=== PATIENT | male | born 1940 | race African-American/Black ===

== ENCOUNTER 2019-09-04 10:09 | Inpatient (IN) | payer MEDICARE, OTHER ==
[~2019-09-04] VITALS: Ht 175.3 cm; Wt 94.8 kg
[2019-09-04 11:30] VITALS: BP 119/65
--- NOTE | 2019-09-04 11:38 | NUR ---
ARRIVED TO UNIT AT APPROXIMATELY 1115. AAOX3. ACYANOTIC. RESTING IN BED. NO DISTRESS NOTED. CALL LIGHT IN REACH. SIDE RAILS UP X2. CALL LIGHT IN REACH. BED LOW. CANE IN REACH. SIDE RAILS UP X2. INSTRUCTED TO CALL FOR ASSISTANCE. VERBALIZED UNDERSTANDING.
[2019-09-04 12:11] VITALS: BP 119/65
[2019-09-04] MEDS ORDERED: ONDANSETRON HCL INJ 2MG/ML 2ML 2 MG/ML VIAL IV PRN (13:45)
[2019-09-04] MEDS ORDERED: ACETAMINOPHEN 325 MG TAB PO PRN (13:45)
[2019-09-04] MEDS: TRAMADOL HCL 50 MG TAB PO PRN ×2 (14:30→21:05)
[2019-09-04] MEDS ORDERED: DEXTROSE 50% SYRINGE 50 ML IV PRN (15:45)
[2019-09-04 16:21] VITALS: BP 118/69
--- NOTE | 2019-09-04 16:24 | History and Physical ---
CHIEF COMPLAINT: Syncopal episode. HISTORY OF PRESENT ILLNESS: This is a 78-year-old male, who was transferred from [facility] ER in the [facility] to our facility due to the fact that the hospital is full capacity, in which he was in the ER for more than 20 hours. He comes into our facility with complaints of a syncopal episode that occurred yesterday. The patient reports that he has had multiple falls related to syncopal episode in which he blacks out, ongoing for the last several months. He has been to the hospital multiple times, has had a complete workup, it is what he reports and found to be negative and he will be discharged to home. He reports, yesterday he was using his walker. When he was walking from his bathroom, he collapsed and fell to the ground. When he woke up, he found himself on the ground and does not recall exactly what happened. He called 911, he was brought into the [facility] ER downtown. The patient was then transferred to our services here at [facility]. The patient is currently doing well with no complaints. He denies any chest pain or any palpitations. Denies any lightheadedness, dizziness, stroke-like symptoms or any seizure-like activity. The patient was seen and evaluated at bedside on the medical floor. He is currently doing well with no other issues at this time. REVIEW OF SYSTEMS: Pertinent positives syncopal episode, lightheadedness with a collapse. The rest of 14-point review of systems are reviewed with the patient and are negative. ALLERGIES: NO KNOWN DRUG ALLERGIES. HOME MEDICATIONS: He takes aspirin, atorvastatin, glipizide, lisinopril, metoprolol, and tramadol with acetaminophen. PAST MEDICAL HISTORY: Diabetes, hypertension, hyperlipidemia, and history of SVT. PAST SURGICAL HISTORY: He said he had a lumbar back surgery more than a year ago. FAMILY HISTORY: Hypertension and diabetes. SOCIAL HISTORY: No drugs. No alcohol. Does not smoke. Good social support. PHYSICAL EXAMINATION: CURRENT VITAL SIGNS: Temperature is 98.9, pulse 86, respiratory rate is 20, blood pressure 119/65, and pulse ox 99% on room air. GENERAL: Not in acute distress, alert and oriented x3. Cooperative on examination. HEENT: Head normocephalic and atraumatic. Eyes; pupils are equal, round, and reactive to light bilaterally. Extraocular muscles intact. NECK: Supple. Good range of motion throughout. No symptoms in the posterior pharynx. Has poor dentition. PULMONARY: Clear to auscultation bilaterally. No wheezing, rales, or rhonchi. No crackles appreciated. CARDIOVASCULAR : Positive S1 and S2. No murmurs, rubs, or gallops. ABDOMEN: Soft, nondistended, and nontender to palpation. Bowel sounds present. MUSCULOSKELETAL: Strength is 5/5 throughout. No evidence of any muscle deficits on examination. NEUROLOGIC: Cranial nerves 2 through 12 are grossly intact. No evidence of any neurological deficits on exam. SKIN: Intact warm to touch. Good cap refill. PSYCHIATRIC: Normal affect and mood. EXTREMITIES: No edema. Good range of motion throughout. LABORATORY DATA: Stat labs are pending. IMAGING STUDIES: X-ray of the back shows degenerative changes in the lumbar spine. Right knee x-ray shows degenerative changes in the right knee with suprapatellar effusion. These imaging studies were performed and evaluated at [facility] ER in [facility]. IMPRESSION: 1. Syncopal episode. 2. History of SVT. 3. Type 2 diabetes. 4. Hypertension. PLAN: At this time, the patient came from an outside ER. I do not see a CT of the brain, which I will go ahead and order now stat. Lumbar x-ray was negative, right knee x-ray was found to be negative as well. I will go ahead and put the patient on cardiac telemetry. Get a Cardiology consultation. Trend the troponins and may need an EP evaluation as he does have a history of SVT according to the records that I read, that was sent to me from [facility]. I will also go ahead and get a Neurology consultation, MRI of the brain and also carotid ultrasound for further evaluation. A CT brain has been ordered as well. I will go ahead and restart his home medications including his anti-glycemics. I will put him on a sliding scale get A1c. I am going to hold Lovenox for now until the imaging studies are back in his CT brain was negative and his MRI of the brain is negative for any bleeding. I will go ahead and get PT and OT evaluation. We will monitor this patient very closely. Consultants involved Cardiology and Neurology, may need EP. MD KOLBY Rodriguez/KORY /[id number]
[2019-09-04 18:29] LABS: BASOPHILS % 0.4 % (0.0-1.0); EOSINOPHILS # (AUTO) 0.1 (0.0-0.4); EOSINOPHILS % 0.7 % (0.0-6.0); HEMATOCRIT 33.6 % (38.2-49.6); HEMOGLOBIN 11.1 g/dL (14.0-18.0); LYMPHOCYTES # (AUTO) 1.1 (1.0-3.2); LYMPHOCYTES % 9.4 % (18.0-39.1); MEAN CORPUSCULAR HEMOGLOBIN 26.9 pg (28-32); MEAN CORPUSCULAR VOLUME 81.6 fL (81-99); MONOCYTES # (AUTO) 1.3 (0.2-0.8); MONOCYTES % 11.2 % (4.4-11.3); NEUTROPHILS # (AUTO) 8.7 (2.1-6.9); PLATELET COUNT 347 x10e3/uL (140-360); RED BLOOD COUNT 4.12 x10e6/uL (4.3-5.7); RED CELL DISTRIBUTION WIDTH 14.6 % (11.7-14.4)
[2019-09-04 18:46] LABS: ANION GAP 13.3 mmol/L (8-16); BLOOD UREA NITROGEN 16 mg/dL (7-26); BUN/CREATININE RATIO 14 (6-25); CALCIUM 9.2 mg/dL (8.4-10.2); CARBON DIOXIDE 26 mmol/L (22-29); CHLORIDE 102 mmol/L (98-107); CREATININE, SERUM 1.17 mg/dL (0.72-1.25); EST GLOMERULAR FILTRATION RATE > 60 ML/MIN (60-); GLUCOSE 158 mg/dL (74-118); POTASSIUM 4.3 mmol/L (3.5-5.1); SODIUM 137 mmol/L (136-145)
--- NOTE | 2019-09-04 18:57 | Diagnostic Imaging Report ---
CT BRAIN WO HISTORY: Syncope COMPARISON: None. Technique: Noncontrast axial scans were obtained from skull base to the vertex. Coronal and sagittal reconstructions obtained from the axial data. One or more of the following dose reduction techniques were used: Automated exposure control, adjustment of the mA and/or kV according to patient size, and/or utilization of iterative reconstruction technique. DISCUSSION: Scalp/Skull: Unremarkable. Brain sulci: Mildly prominent. Ventricles: Compensatory dilatation. Extra-axial spaces: No masses or fluid collections. Carotid siphon calcifications are present. Parenchyma: Mild bilateral deep white matter hypodensity is likely chronic microvascular ischemic change. Otherwise, no masses, hemorrhage, or large vascular territory acute infarct. Dural sinuses: No abnormal densities. Sellar/Suprasellar region: Intact. Skull base: Intact. Incidental findings: None. IMPRESSION: 1. No acute intracranial abnormalities. 2. Mild supratentorial chronic microvascular ischemic change. Mild generalized cerebral volume loss. Signed by: Dr. Sergey Padron M.D. on 09/04/2019 6:53 PM
[2019-09-04 20:00] VITALS: BP 141/84
[2019-09-04] MEDS ORDERED: MELATONIN 5 MG TABLET PO PRN (21:00)
[2019-09-04 21:19] VITALS: BP 141/84
--- NOTE | 2019-09-04 21:35 | NUR ---
SPOKE TO DR. DAIGLE REGARDING PATIENT HEART RATE 120'S TO 130'S ON TELE AND HOME MEDS. NEW ORDER RECEIVED TO CONTINUE HOME MEDS EXCEPT LISINOPRIL AND TO GIVE HOME MED METOPROLOL NOW.
[2019-09-04] MEDS ORDERED: METOPROLOL SUCC25 MG PO (21:45)
[2019-09-04] MEDS ORDERED: ULTRAM50 MG PO (21:45)
[2019-09-04] MEDS ORDERED: LIPITOR20 MG PO (21:45)
[2019-09-04] MEDS ORDERED: LISINOPRIL10 MG PO (21:45)
[2019-09-04] MEDS ORDERED: GLIPIZIDE ER5 MG PO (21:45)
[2019-09-04] MEDS ORDERED: ASPIRIN81 MG PO (21:45)
[2019-09-04] MEDS: METOPROLOL SUCCINATE 25 MG TAB XL PO SCH (22:15)
[2019-09-05] VITALS (8 sets, daily range): BP systolic 108–152; BP diastolic 69–88
[2019-09-05 07:46] LABS: BASOPHILS # (AUTO) 0.1 (0.0-0.1); BASOPHILS % 0.5 % (0.0-1.0); EOSINOPHILS # (AUTO) 0.1 (0.0-0.4); EOSINOPHILS % 1.1 % (0.0-6.0); HEMATOCRIT 34.7 % (38.2-49.6); HEMOGLOBIN 11.4 g/dL (14.0-18.0); LYMPHOCYTES # (AUTO) 1.5 (1.0-3.2); LYMPHOCYTES % 12.4 % (18.0-39.1); MEAN CORPUSCULAR HEMOGLOBIN 26.5 pg (28-32); MEAN CORPUSCULAR HGB CONC 32.9 g/dL (31-35); MEAN CORPUSCULAR VOLUME 80.5 fL (81-99); MONOCYTES # (AUTO) 1.3 (0.2-0.8); MONOCYTES % 11.4 % (4.4-11.3); NEUTROPHILS # (AUTO) 8.7 (2.1-6.9); NEUTROPHILS % 74.1 % (38.7-80.0); PLATELET COUNT 370 x10e3/uL (140-360); RED BLOOD COUNT 4.31 x10e6/uL (4.3-5.7); RED CELL DISTRIBUTION WIDTH 14.5 % (11.7-14.4)
[2019-09-05 08:05] LABS: ANION GAP 15.1 mmol/L (8-16); BLOOD UREA NITROGEN 14 mg/dL (7-26); BUN/CREATININE RATIO 12 (6-25); CALCIUM 9.2 mg/dL (8.4-10.2); CARBON DIOXIDE 24 mmol/L (22-29); CHLORIDE 102 mmol/L (98-107); CREATININE, SERUM 1.16 mg/dL (0.72-1.25); EST GLOMERULAR FILTRATION RATE > 60 ML/MIN (60-); GLUCOSE 124 mg/dL (74-118); POTASSIUM 4.1 mmol/L (3.5-5.1); SODIUM 137 mmol/L (136-145)
[2019-09-05 09:00] LABS: CHOL/HDL RATIO 4.2 (3.9-4.7)
[2019-09-05] MEDS: GLIPIZIDE 5 MG TAB ER PO SCH (10:08)
[2019-09-05] MEDS: ATORVASTATIN 20 MG TAB PO SCH (10:08)
[2019-09-05] MEDS: ASPIRIN 81 MG CHEW TAB PO SCH (10:08)
[2019-09-05] MEDS: METOPROLOL SUCCINATE 25 MG TAB XL PO SCH (10:09)
--- NOTE | 2019-09-05 11:26 | Consultation ---
DATE OF CONSULTATION: Neurology Consultation HISTORY OF PRESENT ILLNESS: Mr. Marcelino is a 78-year-old gentleman, who comes in for repeated syncope and collapse, multiple episodes in the last 2 years. The patient reports that he walks with a walker and he loses balance, he wakes up on the floor. He does not really remember the process of falling, he thinks he is out for minutes, not hours, but may possibly seconds is not entirely sure. He is unclear as to the etiology of these events. They have been ongoing and repeated. He has had a full neurological cardiac workup in the past and he states that nothing really is found. He has history of lightheadedness at times, but denies dizziness, double vision, stroke-like symptoms or seizures or convulsions. REVIEW OF SYSTEMS: Denies headache, chest pain, neck pain, shortness of breath, or fever. A 14-point review of systems is otherwise negative other than syncopal episode itself. MEDICATIONS: At home, he is already on aspirin and atorvastatin. PAST MEDICAL HISTORY: He has history of hypertension, diabetes, and hyperlipidemia. SOCIAL HISTORY: No tobacco, alcohol, or drugs. PHYSICAL EXAMINATION: VITAL SIGNS: Temperature is 98, blood pressure is 141/84 that drops to 118/92, and his heart rate is 84, but regular. He is saturating 97% on room air. HEENT: Exam otherwise shows extraocular muscles intact. Face symmetric. Tongue is midline. Speech is clear. He is a little bit slow to respond. He might have slightly diminished length mild masked faces, but mild. He denies any evidence of loss of sense or smell. CARDIOVASCULAR: Regular rate and rhythm. PULMONARY: Clear. ABDOMEN: Soft and nontender. NEUROLOGIC: Strength is 4/5 in uppers and lowers. Reflexes are diminished. He is not ataxic, but he is a little slow in his movements. ASSESSMENT AND PLAN: I am seeing him for recurrent falls and syncope. I actually suspect he might have a dopaminergic dysfunction, specifically parkinsonian syndrome or Shy-Drager syndrome. CT-PET scan as an outpatient will be warranted as were an EMG, but from this point, we are not going to initiate any new therapeutic intervention at this time. I am going to recommend home physical therapy, occupational therapy evaluation and follow up with me as an outpatient in 1-3 weeks. I discussed this with Mr. Marcelino at length. He agrees with above plan. MD RHONDA HANCOCK/KORY /[id number]
--- NOTE | 2019-09-05 14:27 | History and Physical ---
REPORT TITLE: Cardiac Consultation BODY AFTER REPORT TITLE: REASON FOR CONSULTATION: Repeated syncope and trauma. HISTORY OF PRESENT ILLNESS: A 78-year-old gentleman, who was transferred from [facility] ER to here. Apparently, the patient presented there after major fall and syncope. This fall preceded definitely by syncope, he passed out and he injured his right knee. His right knee is swollen. The patient had several admission with repeated syncope. Latest was few weeks back. As per patient, he will suddenly lose consciousness and he will collapse to the floor. He denied any having any prodrome or any seizure-like activity. Denied having his heart racing or not racing. In fact, his problem started two years ago, but he had only one episode, but then in the last few months he had 5-6 episodes of sudden syncope and collapse. At one stage, his doctor told him he had fast heart rate, he was placed on metoprolol. Really truly the patient is very poor historian. The patient denied having any angina. His activities are quite limited and he is using a cane to walk because of the fall and injury and swollen right knee. There is no angina, no orthopnea, no paroxysmal nocturnal dyspnea. The patient is known to have hypertension, diabetes mellitus, and hyperlipidemia. REVIEW OF SYSTEMS: GENERAL: No fever, no chills. HEENT: No vision problem. No hearing problem. PULMONARY: No cough. No hemoptysis. CARDIAC: No angina, no orthopnea, no PND, syncope as described above. GI: No hematemesis. No melena. : No hematuria. No dysuria. MUSCULOSKELETAL: Aches and pain. ENDOCRINE: No symptoms to suggest hypoglycemia. HEMATOLOGY: No easy bruising or bleeding. MUSCULOSKELETAL: Injury to the right knee and swelling of the right knee and the patient walks with a cane. NEUROLOGICAL: No seizure activity. No localized weakness. No prior CVA or stroke. HOME MEDICATIONS: 1. Lipitor 20 mg a day. 2. Lisinopril 10 mg a day. 3. Aspirin 81 mg a day. 4. Toprol-XL 25 mg a day. 5. Glipizide 5 mg a day. 6. Tramadol. 7. Tylenol. ALLERGIES: NONE. PAST MEDICAL HISTORY: 1. Diabetes mellitus. 2. Hypertension. 3. Hyperlipidemia. 4. History of fast heart rate. 5. Lumbar back surgery. 6. Cholecystectomy. 7. Recent trauma and swelling of the right knee after his fall. FAMILY HISTORY: Strongly positive for hypertension and diabetes mellitus. SOCIAL HISTORY: He is . He is nonsmoker and no alcohol. PHYSICAL EXAMINATION: VITAL SIGNS: Height of 5 feet 9 inches, weight of 209 pounds, blood pressure 120/80, heart rate of 80, respiratory rate of 18. HEENT: Pupils are equal and reactive. NECK: No elevation of jugular venous pulsation. CHEST: Clear to auscultation and percussion. HEART: PMI 5th left intercostal space. Normal first and second heart sounds. ABDOMEN: Soft. EXTREMITIES: No cyanosis, no clubbing, no edema. Swelling of the right knee is noted. GENERAL: Awake, alert, and oriented, able to move all extremities. No focal deficits. LABORATORY DATA: Sodium of 137, potassium of 4.1, BUN of 14, creatinine of 1.1. White blood cell count of 11.7, hemoglobin of 11.4, hematocrit 35%, platelet count of 370,000. EKG showing normal sinus rhythm, nonspecific ST changes. Telemetry review, the patient does have short burst of atrial fibrillation, rate of 160. IMPRESSION AND PLAN: 1. Syncope worsening in the last few weeks with major trauma. 2. Most likely the patient sick sinus syndrome in and out of fast heart rate, fast heart rate is documented. Atrial fibrillation is noted. 3. Diabetes mellitus. 4. Hypertension. I reviewed his records from [facility]. I reviewed his paper, long discussion with the patient. I believe at this time following the patient definitely does have sick sinus syndrome. We documented the fast component. The patient will benefit from having a pacemaker and then we can give him larger dose of beta-chavez and should also give him anticoagulation. Regarding the workup for newly wed up to the primary team up to the primary team, it seems to be traumatic following the fall. We will follow the patient's progression with you and would like to thank you for kind referral. We will consult EP Service. MD JACKIE Barbour/KORY /[id number]
[2019-09-05] MEDS ORDERED: SODIUM CHLORIDE 0.9% 100 ML ONE (15:49)
[2019-09-05] MEDS ORDERED: IOPAMIDOL 370 MG/ML 200 ML INFUS..BTL INJ ONE (15:50)
[2019-09-05] MEDS: TRAMADOL HCL 50 MG TAB PO PRN (18:09)
--- NOTE | 2019-09-05 18:12 | NUR ---
PATIENT'S BLOOD SUGAR DECREASED TO 70. ORANGE JUICE AND LINDA CRACKERS PROVIDED TO PATIENT. NO DISTRESS NOTED. PATIENT AAOX3. ACYANOTIC. RESTING IN BED. CALL LIGHT IN REACH. SIDE RAILS UP X2. BED LOW AND LOCKED.
--- NOTE | 2019-09-05 18:18 | Progress Note ---
DATE: 09/05/2019 Medicine Progress Note SUBJECTIVE: I spoke with Cardiology today. The patient has sick sinus syndrome and EP was consulted for pacemaker. Otherwise, the patient is doing well with no complaints. No overnight events. PHYSICAL EXAMINATION: VITAL SIGNS: He is afebrile. Normotensive. Respiratory rate is good. GENERAL: Not in acute distress, alert and oriented x3. Cooperative on examination. PULMONARY: Clear to auscultation bilaterally. No wheezing, rales, or rhonchi. No crackles appreciated. CARDIOVASCULAR : Positive S1 and S2. No murmurs, rubs, or gallops. ABDOMEN: Soft, nondistended, and nontender to palpation. Bowel sounds present. MUSCULOSKELETAL: Strength is 5/5 throughout. No evidence of any muscle deficits on examination. NEUROLOGIC: Cranial nerves 2 through 12 are grossly intact. No evidence of any neurological deficits on exam. SKIN: Intact. Warm to touch. Good cap refill. PSYCHIATRIC: Normal affect and mood. EXTREMITIES: No edema. Good range of motion throughout. LABORATORY DATA: Labs show white count 11.7, hemoglobin 11.4, hematocrit is 34.7, platelets of 370. Chemistry; sodium 137, potassium 4.1, chloride 102, bicarb 24, anion gap of 15, BUN 14, creatinine 1.1. Coronavirus is pending. IMAGING STUDIES: Carotid Doppler preliminary shows no evidence of any stenosis. 2D echo shows an EF of 55% to 60% at the present report. MRI of the brain is still pending. IMPRESSION: 1. Syncopal episode. 2. Sick sinus syndrome. 3. Type 2 diabetes. 4. Hypertension. PLAN: At this time, I spoke with Cardiology. They are recommending a pacemaker according to them, the cardiac telemetry shows evidence of sick sinus syndrome. EP was consulted for pacemaker placement. He is scheduled to get an MRI. Hopefully that will occur tomorrow before a pacemaker placement. As per Neurology, they recommend no further workup at this time outpatient followup in their office. We will get morning labs. TSH was normal. A1c was normal. At this time, the patient is very comfortable. We will continue with same plan of care. Monitor closely. Erick Cuevas MD JSD/MODL /[id number]
--- NOTE | 2019-09-05 18:26 | Diagnostic Imaging Report ---
CTA NECK HISTORY: Syncope COMPARISON: Head CT 09/04/2019 TECHNIQUE: CTA of the neck was performed with intravenous iodine based contrast. Coronal, sagittal, and oblique maximum intensity projection reformations were created. One or more of the following dose reduction techniques were used: Automated exposure control, adjustment of the mA and/or kV according to patient size, and/or utilization of iterative reconstruction technique. DISCUSSION: If present, any cervical carotid stenosis will be measured as a percentage relative to the [place] artery distal to the stenosis (NASCET). There is mild calcified plaque in the aortic arch. Slightly extends into the Right Carotid: Mild distal right common carotid artery and right carotid bulb calcified plaque does not cause significant stenosis. The right internal carotid artery has a slight retropharyngeal course. Left Carotid: Mild left carotid bulb calcified plaque does not cause significant stenosis. Right vertebral artery: Patent, no abnormalities. Left vertebral artery: Patent, no abnormalities. The intracranial arterial vasculature is partially imaged. Bilateral carotid siphon calcifications are present. Bilateral persistent circulation is present with hypoplastic right T1 segment. Additional findings: Enlarged thyroid goiter (measuring up to 8.2 cm in craniocaudal dimension and 9.2 cm in transverse dimension) slightly extends into the thoracic inlet and slightly compresses the trachea, which is otherwise patent. There are prominent degenerative changes throughout the spine. IMPRESSION: 1. Enlarged thyroid goiter slightly extends into the thoracic inlet, slightly compresses the trachea, and splays the carotid spaces. 2. Mild bilateral cervical carotid calcified plaque without significant stenosis. 3. No other cervical CTA abnormalities. Signed by: Dr. Sergey Padron M.D. on 09/05/2019 6:22 PM
[2019-09-05] MEDS ORDERED: METOPROLOL SUCCINATE 25 MG TAB XL PO SCH (21:45)
[2019-09-05] MEDS: HYDROCODONE/APAP 5MG-325MG TAB PO PRN (22:24)
[2019-09-06] VITALS (8 sets, daily range): BP systolic 116–136; BP diastolic 65–92
[2019-09-06 05:01] LABS: BASOPHILS # (AUTO) 0.1 (0.0-0.1); BASOPHILS % 0.5 % (0.0-1.0); EOSINOPHILS # (AUTO) 0.2 (0.0-0.4); EOSINOPHILS % 2.2 % (0.0-6.0); HEMATOCRIT 32.4 % (38.2-49.6); HEMOGLOBIN 11.1 g/dL (14.0-18.0); LYMPHOCYTES # (AUTO) 1.8 (1.0-3.2); LYMPHOCYTES % 16.2 % (18.0-39.1); MEAN CORPUSCULAR HEMOGLOBIN 28.5 pg (28-32); MEAN CORPUSCULAR HGB CONC 34.3 g/dL (31-35); MEAN CORPUSCULAR VOLUME 83.1 fL (81-99); MONOCYTES # (AUTO) 1.2 (0.2-0.8); MONOCYTES % 10.7 % (4.4-11.3); NEUTROPHILS # (AUTO) 7.7 (2.1-6.9); PLATELET COUNT 356 x10e3/uL (140-360); RED CELL DISTRIBUTION WIDTH 14.8 % (11.7-14.4)
[2019-09-06] MEDS: HYDROCODONE/APAP 5MG-325MG TAB PO PRN (05:16)
[2019-09-06 05:58] LABS: ANION GAP 13.2 mmol/L (8-16); BLOOD UREA NITROGEN 14 mg/dL (7-26); BUN/CREATININE RATIO 12 (6-25); CARBON DIOXIDE 25 mmol/L (22-29); CHLORIDE 101 mmol/L (98-107); CREATININE, SERUM 1.18 mg/dL (0.72-1.25); EST GLOMERULAR FILTRATION RATE > 60 ML/MIN (60-); GLUCOSE 101 mg/dL (74-118); POTASSIUM 4.2 mmol/L (3.5-5.1); SODIUM 135 mmol/L (136-145)
--- NOTE | 2019-09-06 08:30 | NUR ---
Dr. Palencia here to see patient and discussed pacemaker placement with patient. Pt was agreeable and was consented for procedure for later this morning. Pt is NPO at this time.
[2019-09-06] MEDS ORDERED: MIDAZOLAM HCL 2 MG/2 ML VIAL ONE (09:55)
[2019-09-06] MEDS ORDERED: LIDOCAINE HCL 2% LOCAL 20 ML VIAL ONE (09:56)
[2019-09-06] MEDS ORDERED: BACITRACIN 50,000 UNIT VIAL ONE (09:56)
[2019-09-06] MEDS ORDERED: FENTANYL CITRATE/PF 100MCG/2 ML INJ ONE (09:56)
[2019-09-06] MEDS ORDERED: SODIUM CHLORIDE 0.9% 500ML 500 ML ONE (09:56)
[2019-09-06] MEDS ORDERED: SODIUM CHLORIDE 0.9% 1000ML 2,000 ML ONE (09:57)
--- NOTE | 2019-09-06 10:00 | NUR ---
Pt being transferred to flower shop laborer/designer at this time for scheduled procedure at this time. 0 s/s of acute distress noted at time of transfer.
[2019-09-06] MEDS ORDERED: VANCOMYCIN 1GM/NS 250 ML 250 ML ONE ×2 (10:05→10:45)
[2019-09-06] MEDS ORDERED: SODIUM CHLORIDE 0.9% 50ML 50 ML ONE (10:40)
[2019-09-06] MEDS ORDERED: CEFAZOLIN SOD 1 GM VIAL ONE (10:40)
[2019-09-06] MEDS ORDERED: CEFAZOLIN SOD 2 GM/D5W 50ML 0 ML IV ONE (10:41)
--- NOTE | 2019-09-06 11:00 | NUR ---
Pt received from maintenance shop laborer at this time. pt is aox3 and able to verbalize needs. Complains of soreness to left chest wall. Dressing to that area iis dry and intact. Dual lead pacemaker was placed by Dr. Palencia.
--- NOTE | 2019-09-06 11:14 | NUR ---
repeated syncope/falls calm, no recurrence vs 99.1 130/76 89 calm aox3 eomi perrl face symmetric no nuchal rigidity rrr cta abd soft motor 4/5 reflexes 1/4 a/p autonomic dysfunction and SSS outpt emg and autonomic testing no evidence seizure, no initaition of aed
[2019-09-06] MEDS: ATORVASTATIN 20 MG TAB PO SCH (12:44)
[2019-09-06] MEDS: GLIPIZIDE 5 MG TAB ER PO SCH (12:44)
[2019-09-06] MEDS: ASPIRIN 81 MG CHEW TAB PO SCH (12:44)
[2019-09-06] MEDS: METOPROLOL SUCCINATE 25 MG TAB XL PO SCH (12:45)
[2019-09-06] MEDS ORDERED: ACETAMINOPHEN/CODEINE 300MG - 30MG TAB PO PRN (14:45)
[2019-09-06] MEDS: MORPHINE SULFATE 2 MG/ML SYR 1ML IV PRN (15:26)
--- NOTE | 2019-09-06 15:30 | Diagnostic Imaging Report ---
EXAMINATION: CHEST SINGLE (PORTABLE) INDICATION: Postprocedural COMPARISON: None FINDINGS: LINES/TUBES:Left chest dual-lead pacemaker. LUNGS:The lungs are moderately inflated. No focal consolidation or pulmonary edema. PLEURA:No pleural effusion or pneumothorax. MEDIASTINUM:The cardiomediastinal silhouette appears normal in size and shape. BONES/SOFT TISSUES:No acute osseous injury. ABDOMEN:No free air under the diaphragm. IMPRESSION: No pneumothorax status post left chest pacemaker placement. Signed by: Angela Lane MD on 09/06/2019 3:26 PM
--- NOTE | 2019-09-06 19:17 | NUR ---
WALKING ROUNDS PERFORMED, RECEIVED PT LAYING SEMI FOWLERS IN BED, AAOX3, RR EVEN AND NON-LABORED, ON ROOM AIR. (L) ANTERIOR CHEST WALL DRESSING CDI WITH (L) ARM IN SLING. LEFT PT LAYING SEMI FOWLERS IN BED, BED IN LOW LOCKED POSITION, SIDE RAILS UPX2, CALL LIGHT AND PHONE WITHIN REACH.
--- NOTE | 2019-09-06 23:40 | Consultation ---
DATE OF CONSULTATION: 09/06/2019 REASON FOR CONSULT: Syncope, sick sinus syndrome. HISTORY OF PRESENT ILLNESS: This is a 78-year-old with history of recurrent syncope. He has had about four episodes in the last year, recently presented after an episode of syncope. He lost consciousness immediately for about 2-3 seconds and now he has recovered. He was evaluated and found to have frequent episodes of atrial fibrillation with rapid ventricular response that on telemetry correlate with some episodes of dizziness during this admission. Also, there were some episodes when he was bradycardic and the heart rate drops to the high 40s. We were unable to treat him medically and due to recurrent syncope he was referred to consider pacemaker. The patient denies chest pain, denies other symptoms. REVIEW OF SYSTEMS: CONSTITUTIONAL: Negative. CARDIOVASCULAR: As per HPI. RESPIRATORY: Negative. GASTROINTESTINAL: Negative. GENITOURINARY: Negative. MUSCULOSKELETAL: Negative. EYES: Negative. ENT: Negative. ALLERGY/IMMUNOLOGY: Negative. PSYCHIATRIC: Negative. PAST MEDICAL HISTORY: Atrial fibrillation. PAST SURGICAL HISTORY: Denies. FAMILY HISTORY: No premature coronary artery disease. SOCIAL HISTORY: Denies alcohol or smoking. PHYSICAL EXAMINATION: VITAL SIGNS: Blood pressure 110/60, pulse 56, O2 sats 98%. GENERAL: No acute distress. HEENT: Moist mucous membranes. CARDIOVASCULAR: Regular. RESPIRATORY: Clear. ABDOMEN: Soft and nontender. MUSCULOSKELETAL: 2+ pulses. NEUROLOGIC: No focal deficits. SKIN: No lesions. PSYCHIATRIC: Normal thought processes. EKG sinus rhythm, on telemetry episodes of atrial fibrillation, rapid ventricular response with heart rate up to 150 beats per minute and episodes of bradycardia, sinus bradycardia, heart rate in the high 40s. IMPRESSION: 1. Sick sinus syndrome, symptomatic bradycardia. 2. Recurrent syncope, unable to treat medically. RECOMMENDATIONS: Discussed with the patient in detail benefits and risks. He voices understanding and wishes to proceed. We will plan for a dual-chamber pacemaker placement. Thank you for letting us participate in Mr. Marcelino's healthcare. Rsus Michele MD JRC/MODL /[id number]
[2019-09-07] VITALS (8 sets, daily range): BP systolic 101–148; BP diastolic 65–92
[2019-09-07] MEDS: MORPHINE SULFATE 2 MG/ML SYR 1ML IV PRN ×3 (00:10→23:07)
--- NOTE | 2019-09-07 00:45 | Progress Note ---
DATE: 09/06/2019 Medicine Progress Note SUBJECTIVE: The patient had a pacemaker placed today. He is doing well postprocedurally. CT imaging of the neck shows evidence of a large goiter, in which Endocrinology was consulted. PHYSICAL EXAMINATION: VITAL SIGNS: Temperature is 97.3, pulse 97, respiratory rate is 18, blood pressure 136/65, pulse ox 97% on room air. GENERAL: No acute distress. Alert and oriented x3. Cooperative on examination. HEENT: Head is normocephalic and atraumatic. Eyes; pupils are equal, round, and reactive to light bilaterally. Extraocular muscles are intact bilaterally. Throat, no evidence of any erythema or exudates in the posterior pharynx. Has poor dentition. NECK: Supple. Good range of motion throughout. PULMONARY: Clear to auscultation bilaterally. No wheezing, rales, or rhonchi. No crackles appreciated. CARDIOVASCULAR : Positive S1 and S2. No murmurs, rubs, or gallops appreciated. ABDOMEN: Soft, nondistended, and nontender to palpation. Bowel sounds present. MUSCULOSKELETAL: Strength is 5/5 throughout. No evidence of any muscle deficits on examination. No weakness appreciated. NEUROLOGIC: Cranial nerves 2 through 12 are grossly intact. No evidence of any neurological deficits on exam. SKIN: Intact. Warm to touch. Good cap refill. PSYCHIATRIC: Normal affect and mood. EXTREMITIES: No edema. Good range of motion throughout. LABORATORY FINDINGS: Show white count 10.9, hemoglobin 11, hematocrit is32, and platelets of 356. Chemistry; sodium 135, potassium 4.2, chloride 101, bicarb 25, anion gap of 13, BUN is 14, creatinine is 1.1, glucose 101, calcium is 9. Coronavirus not detected. IMAGING STUDIES: CTA of the neck shows enlarged thyroid goiter, slightly extends in the thoracic inlet. Mild bilateral cervical carotid calcification significant stenosis. Chest x-ray performed today postprocedure shows no evidence of pneumothorax, status post left chest pacemaker placement. IMPRESSION: 1. Syncopal episode, secondary to sick sinus syndrome, now status post pacemaker placement on 09/06/2019. 2. Type 2 diabetes. 3. Hypertension. PLAN: At this time per Neurology, no further workup needed. MRI of the brain was not performed. Instead, a pacemaker was installed, not sure why it that occurred, but Neurology did not want the MRI anyway. The patient reportedly is doing very well. We did find a large thyroid goiter, in which I did get Endocrinology involved for assessment. He can actually essentially follow up as an outpatient in relation to the goiter. My plan is to discharge him home tomorrow. No further cardiac workup needed, no further neurological workup needed, and for Endocrinology, he can follow up as an outpatient. MD KOLBY Rodriguez/MODL /[id number]
--- NOTE | 2019-09-07 01:06 | Operative Report ---
DATE OF PROCEDURE: 09/06/2019 SURGEON: Russ Michele MD PREPROCEDURE DIAGNOSES: 1. Recurrent syncope. 2. Sick sinus syndrome, unable to manage medically. 3. Symptomatic bradycardia and atrial fibrillation with rapid ventricular response. POSTPROCEDURE DIAGNOSES: 1. Recurrent syncope. 2. Sick sinus syndrome, unable to manage medically. 3. Symptomatic bradycardia and atrial fibrillation with rapid ventricular response. ESTIMATED BLOOD LOSS: 10 mL. COMPLICATIONS: None. PROCEDURES PERFORMED: 1. Dual-chamber pacemaker placement. 2. Moderate sedation. Moderate conscious sedation was provided under my direct supervision by sedation trained nurse. Sedation approximate time, 30 minutes, Versed and fentanyl. There were no complications. See sedation form for details. DESCRIPTION OF PROCEDURE: After informed consent was obtained, the patient was brought to the electrophysiology laboratory in a fasting, nonsedated state. Area over his chest was prepped and draped in the usual sterile fashion. Moderate sedation and prophylactic antibiotics were given. 1% lidocaine was used as local anesthetic and a 3 cm skin incision was made in the left subclavicular area. Electrocautery sharp and blunt dissection were used to bridge the muscular fascia and a pocket was created for event implantation of the device. Vascular access was obtained x2 in the left axillary vein using modified Seldinger technique under fluoroscopic guidance. Two sheaths were placed ventricular lead to the RV apex. R-waves 4, pacing 0.9 at 0.4, impedance 839, atrial lead to the right atrial appendage, P-wave 4, pacing 0.8 at 0.4, impedance 460. Sheaths were removed from the body. Leads were secured to fascia using Ethibond. Pocket was irrigated with antibiotic solution using the pulse metal sprayer. Hemostasis was meticulous. Leads were connected to the device and entire pacemaker system placed in the pocket. Incision was closed using absorbable sutures and Dermabond. The patient tolerated the procedure well. Procedure was incomplete. SUMMARY OF HARDWARE IMPLANTED: 1. The new pacemaker is a [employer], serial #[id number]. 2. Ventricular lead is a [employer] [id number]. 3. Atrial lead is [employer] [id number]. IMPRESSION: Successful dual-chamber pacemaker implant via left axillary vein. PLAN: 1. Routine postop monitoring on telemetry bed. 2. Chest x-ray. 3. Follow up in two weeks. MD BRANDON Moreno/KORY /[id number]
[2019-09-07 04:49] LABS: BASOPHILS # (AUTO) 0.1 (0.0-0.1); BASOPHILS % 0.5 % (0.0-1.0); EOSINOPHILS # (AUTO) 0.2 (0.0-0.4); EOSINOPHILS % 1.7 % (0.0-6.0); HEMATOCRIT 34.5 % (38.2-49.6); HEMOGLOBIN 11.3 g/dL (14.0-18.0); LYMPHOCYTES # (AUTO) 1.5 (1.0-3.2); LYMPHOCYTES % 12.9 % (18.0-39.1); MEAN CORPUSCULAR HEMOGLOBIN 26.6 pg (28-32); MEAN CORPUSCULAR HGB CONC 32.8 g/dL (31-35); MEAN CORPUSCULAR VOLUME 81.2 fL (81-99); MONOCYTES # (AUTO) 1.1 (0.2-0.8); MONOCYTES % 9.4 % (4.4-11.3); NEUTROPHILS # (AUTO) 8.5 (2.1-6.9); NEUTROPHILS % 75.1 % (38.7-80.0); PLATELET COUNT 428 x10e3/uL (140-360); RED BLOOD COUNT 4.25 x10e6/uL (4.3-5.7); RED CELL DISTRIBUTION WIDTH 14.4 % (11.7-14.4)
[2019-09-07 05:03] LABS: ANION GAP 15.4 mmol/L (8-16); BLOOD UREA NITROGEN 13 mg/dL (7-26); BUN/CREATININE RATIO 12 (6-25); CARBON DIOXIDE 25 mmol/L (22-29); CHLORIDE 101 mmol/L (98-107); CREATININE, SERUM 1.12 mg/dL (0.72-1.25); EST GLOMERULAR FILTRATION RATE > 60 ML/MIN (60-); GLUCOSE 112 mg/dL (74-118); POTASSIUM 4.4 mmol/L (3.5-5.1); SODIUM 137 mmol/L (136-145)
[2019-09-07] MEDS: ASPIRIN 81 MG CHEW TAB PO SCH (09:26)
[2019-09-07] MEDS: GLIPIZIDE 5 MG TAB ER PO SCH (09:27)
[2019-09-07] MEDS: ATORVASTATIN 20 MG TAB PO SCH (09:28)
[2019-09-07] MEDS: METOPROLOL SUCCINATE 25 MG TAB XL PO SCH (09:29)
--- NOTE | 2019-09-07 12:42 | NUR ---
ORDER FOR ACUTE REHAB EVAL GAVE PT LIST OF REHAB FACILITIES WILL SPEAK WITH AND CALL ME BACK WITH CHOICE
--- NOTE | 2019-09-07 12:59 | Progress Note ---
DATE: 09/07/2019 Medicine Progress Note SUBJECTIVE: The patient is still relatively very weak and needs rehab. I discussed this with physical therapy. He is otherwise doing well with no complaints. Still waiting on Endocrinology recommendations. PHYSICAL EXAMINATION: VITAL SIGNS: Temperature is 98.7, pulse 86, respiratory rate 16, blood pressure 135/81, and pulse ox 98% on room air. GENERAL: Not in acute distress. Alert and oriented x3. Cooperative on examination. PULMONARY: Clear to auscultation bilaterally. No wheezing, no rales, no rhonchi, no crackles appreciated. CARDIOVASCULAR: Positive S1 and S2. No murmurs, rubs, or gallops appreciated. ABDOMEN: Soft, nondistended, and nontender to palpation. Bowel sounds present. MUSCULOSKELETAL: Strength is 5/5 throughout. No evidence of any muscle deficits on examination. No weakness appreciated. NEUROLOGIC: Cranial nerves 2 through 12 grossly intact. No evidence of any neurological deficits on exam. SKIN: Intact. Warm to touch. Good cap refill. PSYCHIATRIC: Normal affect and mood. EXTREMITIES: No edema. Good range of motion throughout. LABORATORY DATA: Show white count 11, hemoglobin 11.3, hematocrit is 34, and platelets of 428. Chemistry; sodium 137, potassium 4.4, chloride 101, bicarb 25, anion gap of 15, BUN is 13, and creatinine is 1.1. Coronavirus nondetected. IMAGING STUDIES: Nothing new. IMPRESSION: 1. Syncopal episode secondary to sick sinus syndrome, now status post pacemaker placement on 09/06/2019. 2. Type 2 diabetes. 3. Hypertension. 4. Generalized weakness, medically debilitated. 5. Large thyroid goiter. PLAN: At this time, for Neurology, no further workup was needed. As per Cardiology and EP, the patient has a pacemaker and no further workup was needed. As per Endocrinology, he does have a large thyroid goiter, which I am waiting for Endocrinology recommendations. As for his ambulation status, he is relatively weak. PT is recommending inpatient rehab, which we will go ahead and place a consult for that. The patient is in agreement to go to inpatient rehab. Otherwise, we will continue with same plan of care and get morning labs. MD KOLBY Rodriguez/KORY /[id number]
--- NOTE | 2019-09-07 13:17 | Diagnostic Imaging Report ---
EXAMINATION: KNEE RIGHT THREE VIEWS INDICATION: Right knee edema COMPARISON: None FINDINGS: AP, lateral and oblique images of the right knee were obtained. No acute fracture or dislocation. Alignment appears anatomic. Moderate to severe patellofemoral compartment predominant tricompartmental degenerative changes. Quadriceps enthesopathy. Moderate suprapatellar joint effusion. IMPRESSION: No acute osseous injury. Suprapatellar joint effusion. Moderate to severe patellofemoral compartment predominant tricompartmental degenerative changes. Signed by: Angela Lane MD on 09/07/2019 1:14 PM
--- NOTE | 2019-09-07 13:34 | NUR ---
repeated syncope/falls calm, no recurrence vs 99.1 101/70 64 calm aox3 eomi perrl face symmetric no nuchal rigidity rrr cta abd soft motor 4/5 reflexes 1/4 a/p autonomic dysfunction and SSS outpt emg and autonomic testing no evidence seizure, no initaition of aed
--- NOTE | 2019-09-07 15:21 | Diagnostic Imaging Report ---
Thyroid ultrasound CPT code: 31707 History: Goiter Comparison: Neck CTA of 09/05/2019 Findings: The thyroid echotexture is heterogeneous. Vascularity is normal. The right lobe measures 6.5 x 3.2 x 2.7 cm. The left lobe measures 6.8 x 3.3 x 3.6 cm. The isthmus measures 0.5 cm. Nodules (measurements are AP, transverse, craniocaudal): Right Lobe: No discrete solid nodule identified. Left Lobe: No discrete solid nodule identified. Isthmus: No cystic mass or discrete solid nodule identified. Lymph Nodes: No cervical lymph nodes are identified. Parathyroids: Not visualized. IMPRESSION: Enlarged thyroid with heterogeneous echotexture consistent with goiter. No focal thyroid nodule. ACR glossary of thyroid rads TI-RADS 1: No focal lesion. TI-RADS 2: Not suspicious. TI-RADS 3: Mildly suspicious (recommend FNA is greater than or equal to 2.5 cm; follow-up at 1, 3, and 5 years if greater than or equal to 1.5 cm) TI-RADS 4: Moderately Suspicious (recommend FNA is greater than or equal to 1.5 cm; follow-up at 1, 2, 3, and 5 years) TI-RADS 5: Highly suspicious (recommend FNA is greater than or equal to 10 mm) TI-RADS 6: Biopsy-proven malignancy Signed by: Angela Lane MD on 09/07/2019 3:17 PM
[2019-09-07 15:30] LABS: FREE T4 (FREE THYROXINE) 0.84 ng/dL (0.8-1.8); THYROID STIMULATING HORMONE 0.97 uIU/mL (0.350-4.940)
--- NOTE | 2019-09-07 20:00 | NUR ---
INITIAL ASSESSMENT COMPLETE, PT IN BED, LEFT ARM IN SLING, LEFT SHOULDER WITH PRESSURE DRESSING TO PACEMAKER AREA, CDI, TELE #3, NO DISTRESS NOTED, CALL LIGHT IN REACH,
--- NOTE | 2019-09-07 20:25 | Consultation ---
DATE OF CONSULTATION: 09/06/2019 Endocrine Consultation. The patient of Dr. Cuevas. HISTORY OF PRESENT ILLNESS: Thank you very much for referring this patient. HISTORY OF PRESENT ILLNESS: This is a 78-year-old black gentleman who was referred to me for evaluation of multinodular goiter. The patient does not have history of any major thyroid problems in the past. The patient came to the hospital this time with cardiac arrhythmias. He was found to have sick sinus syndrome. The patient has history of hypertension, mild diabetes mellitus, hyperlipidemia, and injury to the knee. During the hospital stay, the patient CT scan of the neck done and found to have a multinodular goiter. The patient does not have any major compression symptoms, resulting from the thyroid nodule. He does not have any family history of thyroid cancer. PHYSICAL EXAMINATION: GENERAL: Today, the patient is alert, awake, little bit apprehensive. VITAL SIGNS: Heart rate is around 70, blood pressure 130/80 mmHg. HEENT: Essentially unremarkable. Thyroid is palpable with some nodularity on the right side. CHEST: Bilateral vesicular breathing. No rales heard. CARDIAC: First and second heart sound. There is no 3rd or 4th heart sound. Ejection systolic murmur sound grade 2/6. 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 LABORATORY DATA: His blood sugars have been running in the 110-130 range and his glycohemoglobin is 6.1. CLINICAL IMPRESSION: Multinodular goiter, sick sinus syndrome, diabetes mellitus type 2 with complications, hyperlipidemia, and hypertension. PLAN: At this time is to do an ultrasound of the thyroid. We also do a free T4, TSH, and antiperoxidase antibody. The condition was discussed with the patient in detail and consider aspiration biopsy of the thyroid on followup. Thanks again for referring this patient. I will be following up this patient with you. MD JACK Bautista/KORY /[id number]
[2019-09-08] VITALS: BP 119/82
[2019-09-08 04:00] VITALS: BP 112/72
--- NOTE | 2019-09-08 06:43 | NUR ---
calm, no recurrence of syncope pacemaker was placed vs 98.2 94 101/70 calm aox3 eomi perrl face symmetric no nuchal rigidity rrr cta abd soft motor 4/5 reflexes 1/4 a/p autonomic dysfunction and SSS outpt emg and autonomic testing no evidence seizure, no initiation of aed
--- NOTE | 2019-09-08 07:42 | NUR ---
ASSUMED CARE. AAOX3. ACYANOTIC. RESTING IN BED. NO DISTRESS NOTED. CALL LIGHT IN REACH. SIDE RAILS UP X2. BED LOW AND LOCKED.
[2019-09-08 08:00] VITALS: BP 120/89
[2019-09-08 08:29] VITALS: BP 120/89
[2019-09-08] MEDS: MORPHINE SULFATE 2 MG/ML SYR 1ML IV PRN ×2 (08:51→14:52)
[2019-09-08] MEDS: ATORVASTATIN 20 MG TAB PO SCH (08:52)
[2019-09-08] MEDS: GLIPIZIDE 5 MG TAB ER PO SCH (08:52)
[2019-09-08] MEDS: METOPROLOL SUCCINATE 25 MG TAB XL PO SCH (08:52)
[2019-09-08] MEDS: ASPIRIN 81 MG CHEW TAB PO SCH (08:52)
--- NOTE | 2019-09-08 09:18 | Consultation ---
DATE OF CONSULTATION: 09/08/2019 CHIEF COMPLAINT: Right knee pain. HISTORY OF PRESENT ILLNESS: The patient is a 78-year-old gentleman, who was admitted after a syncopal episode. He states that when he fell, he injured his right knee. He states that his knee has not given him problems in the past. He notes that he had surgery on this knee some 40 years ago. Orthopedic consultation was requested for his right knee. PAST MEDICAL HISTORY: Please see admission H and P. He is presently admitted for a syncopal episode. He has a history of diabetes, hypertension, hyperlipidemia, lumbar surgery, and cholecystectomy. PHYSICAL EXAMINATION: GENERAL: He is awake, alert, and oriented. He is pleasant and in no distress. EXTREMITIES: Gross inspection of his right lower extremity reveals no bruising or abrasions. He has pronounced varus deformity of his right knee. There is chronic swelling. Range of motion is painful from -5 degrees to 60 degrees. The varus deformity is fixed. He has diminished range of motion of his hip. He ambulates very slowly with a quad cane. LABORATORY DATA: Laboratory studies and x-rays show severe end-stage osteoarthritis with varus subluxation. There is no evidence of an acute injury. IMPRESSION: End-stage osteoarthritis, right knee. The findings were discussed with Mr. Marcelino. Definitive treatment would require a knee replacement once he is stabilized from his syncopal episodes. I have provided my contact information. He will potentially come to see me in the office. He states that his has been through a knee replacement and is not happy with the outcome. I explained that is a possibility, but is unusual. I have encouraged him to come see me once he gets out of the hospital. Thank you for the consultation. Liban Son MD DR/KORY /[id number]
[2019-09-08 12:05] VITALS: BP 135/92
[2019-09-08] MEDS ORDERED: ONDANSETRON HCL 4 MG ORAL DISINTEGRATING TAB PO PRN (14:15)
--- NOTE | 2019-09-08 15:48 | NUR ---
MOT: [address] [place] [id number] ATTENDING: SHAHID BENITES MARKETING ARE[employer] MANAGER EDENILSON LOONEY CALL REPORT TO [phone]
[2019-09-08 15:52] VITALS: BP 123/72
--- NOTE | 2019-09-08 22:47 | Discharge Summary ---
FINAL DISCHARGE DIAGNOSES: 1. Syncopal episode, secondary to sick sinus syndrome, now status post pacemaker placement on 09/06/2019 by EP. 2. Type 2 diabetes. 3. Hypertension. 4. Generalized weakness, medically debilitated. 5. Large thyroid goiter. CONSULTANTS: Endocrine, EP, Cardiology, Orthopedics, Neurology. PHYSICAL EXAMINATION: VITAL SIGNS: Temperature 98.3, pulse 82, respiratory rate 18, blood pressure 135/92, pulse ox 98% on room air. LABORATORY DATA: Show white count was 11, hemoglobin 11, hematocrit 34, platelets of 428. Chemistry, sodium 137, potassium 4.4, chloride 101, bicarb 25, anion gap of 15, BUN 13, creatinine 1.1, glucose 112, calcium is 9. Troponins were negative. LDL 75. TSH is 0.97. Immunology; thyroid peroxidase antibody less than 9. Coronavirus was not detected. IMAGING STUDIES: CT brain, no acute intracranial abnormalities. CTA of the neck shows enlarged thyroid goiter slightly extending into the thoracic inlet slightly compresses the trachea. Mild bilateral cervical carotid calcification plaque without significant stenosis. Carotid Doppler ultrasound, the right internal carotid artery shows 1% to 15% stenosis. Left internal carotid artery shows 1% to 15% carotid stenosis, all negative. Chest x-ray shows no pneumothorax, status post left chest pacemaker placement. Thyroid ultrasound, enlarged thyroid with heterogeneous echotexture consistent with goiter. No focal thyroid nodule. X-ray of the right knee shows no acute osseous injury. Suprapatellar joint effusion. [id number] patellofemoral compartment predominant tricompartmental degenerative changes. HOSPITAL COURSE: This is a 78-year-old male came in as a transfer from [facility] for further evaluation and management for underlying syncope. The patient was admitted and Cardiology and Neurology were consulted. Cardiology was consulted, came and evaluated the patient and on cardiac telemetry, the patient was found to have underlying sick sinus syndrome. EP was consulted and the pacemaker was installed on 09/06/2019. The patient did well after that procedure with no issues. Cardiac enzymes were found to be negative. Neurology was consulted and evaluated the patient and recommended outpatient followup with them in 3 weeks for further evaluation and management for his underlying falls. Imaging studies show CT brain found to be negative. CT of the neck showed evidence of a thyroid goiter, for which Endocrinology was consulted. Thyroid ultrasound showed no evidence of a thyroid nodule. Discussed with Endocrinology. Recommends no further workup with outpatient followup in his office in 3 weeks' time. The patient was cleared for discharge by Cardiology, EP, Neurology, and Endocrinology. The patient was medically debilitated. He had difficulty ambulating and physical therapy recommended inpatient rehab. The patient was discharged to inpatient rehab for further rehabilitation. On discharge, the patient was doing well, back to baseline with no complaints. On the day of discharge, vital signs were stable, labs reviewed and stable. The patient is seen and evaluated, examined thoroughly on the day of discharge. No other complaints. The patient verbalized understanding and agrees to plan of care to follow up accordingly as an outpatient primary care physician in 1 week, EP in 2 weeks, Cardiology in 3 weeks, Neurology in 3 weeks, and Endocrinology in 3 weeks' time. MEDICATIONS: See med reconciliation form. DISPOSITION: Inpatient rehab in [facility]. CONDITION: Stable. DIET: Heart healthy. In the event of any worsening symptoms, the patient was asked to come back to the ED for further evaluation. Discharge summary took greater than 35 minutes. MD KOLBY Rodriguez/MODL /[id number]
--- OUTSIDE RECORDS SUMMARY | 2019-09-10 18:10 | XMS REPORT ---
Author Author Ted Zheng Organization [employer] Address Unknown Phone Unavailable Care Team Providers Care Water Well Driller Name Role Phone Osmar Zheng CP Unavailable Allergies No Known Allergies Problems Problem Type Condition Code Onset Dates Condition Statu s Problem Lumbar degenerative disc disease M51.36 Active Problem Hypertension I10 Active Problem Elevated lipids E78.5 Active Problem Type 2 diabetes mellitus without complications E11.9 Active Problem Thyromegaly E04.9 Active Problem Insomnia G47.00 Active Problem Dizziness R42 Active Problem Prostate ca C61 Active Problem CKD (chronic kidney disease) N18.9 Active Problem Elevated LFTs R94.5 Active Problem Neck swelling R22.1 Active Medications Medication Code System Code Instructions Start Date End Date Status Dosage Tramadol HCl [facility] 86134823284 50 MG Orally Once a day July 19, 2019 August 18, 2019 Active 1 tablet as needed Results No Known Results Summary Purpose [employer] Submission
--- OUTSIDE RECORDS SUMMARY | 2019-09-10 18:10 | XMS REPORT ---
Author Author Ted Zheng [facility] [employer] Address Unknown Phone Unavailable Care Team Providers Care Civil Service Worker Name Role Phone Osmar Zheng CP Unavailable Allergies, Adverse Reactions, Alerts Substance Reaction Event Type N.K.D.A. Info Not Available Non Drug Allergy Problems Problem Type Condition Code Onset Dates Condition Statu s Problem Elevated lipids E78.5 Active Problem CKD (chronic kidney disease) N18.9 Active Problem Hypertension I10 Active Assessment UTI (urinary tract infection) N39.0 Active Problem Type 2 diabetes mellitus without complications E11.9 Active Problem Lumbar degenerative disc disease M51.36 Active Problem UTI (urinary tract infection) N39.0 Active Problem Thyromegaly E04.9 Active Problem Dizziness R42 Active Problem Neck swelling R22.1 Active Problem Prostate ca C61 Active Problem Insomnia G47.00 Active Problem Elevated LFTs R94.5 Active Medications Medication Code System Code Instructions Start Date End Date Status Dosage Toprol XL [facility] 75160684175 25 MG Orally Once a day Oct 18, 2014 Active 1 tablet Meclizine HCl ND 41102199255 25 MG Orally twice a day Mar 15, 2019 Active 1 tablet as needed Lisinopril [facility] 43893119313 10 MG Active TAKE 1 TA BLET BY MOUTH EVERY NIGHT AT BEDTIME Aspirin [facility] 87070489836 81 MG Orally Once a day Acti ve 1 tablet Mobic [facility] 07283455670 15 MG Orally Once a day Acti ve 1 tablet Acetaminophen-Codeine #3 [facility] 52003916306 300-30 MG Orally every 6-8 hrs Feb 08, 2019 Apr 09, 2019 Active 1 tablet as needed Glucotrol XL ND 47031496261 2.5 MG Orally Once a day Active 1 tablet Paxil [facility] 12776610006 20 MG Orally Once a day Mar 26, 2018 Active 1 tablet at night Atorvastatin Calcium [facility] 32637360312 80 Active TAKE 1 TABLET BY MOUTH DAILY Vital Signs Date/Time: Mar 22, 2019 BMI 31.60 Index Weight 214 lbs Height 69 in Cardiac Monitoring Heart Rate 64 /min Blood Pressure Diastolic 68 mm Hg Blood Pressure Systolic 102 mm Hg Results No Known Results Summary Purpose [employer] Submission
--- OUTSIDE RECORDS SUMMARY | 2019-09-10 18:10 | XMS REPORT ---
Author Author Ted Zheng [facility] [place] eClinicalWorks Address Unknown Phone Unavailable Care Team Providers Care Services Clerk Name Role Phone Osmar Zheng CP Unavailable Allergies, Adverse Reactions, Alerts Substance Reaction Event Type N.K.D.A. Info Not Available Non Drug Allergy Encounters Encounter Location Date biopsy /u [facility] Oct Unknown [facility] Oct 3 months f/u [facility] Jan 30, 2015 saw leveler helper, and urologist [facility] ates Sep 14, 2014 results [facility] Oct 05, 2014 needs an order [facility] Oct 07, 2014 Problems Problem Type Condition ICD-9 Code Onset Dates Condition Statu s Problem Type 2 diabetes mellitus without complications E11.9 Active Assessment Type 2 diabetes mellitus without complications E11.9 Active Problem Elevated lipids E78.5 Active Assessment Colonic polyp K63.5 Active Assessment Essential hypertension I10 Activ e Assessment Elevated lipids E78.5 Active Medications Medication Code System Code Instructions Start Date End Date Status Dosage Lisinop[facility] [address]-36 30 MG Orally Once a day Active 1 tablet Lipitor [facility] [address]-73 80 mg Orally Once a day A ctive 1 tablet Ambien [facility] [address]-27 5 MG Orally Once a day Ac tive 1 tablet at bedtime Vicodin [facility] [address]-45 5-300 MG Orally every 6 hrs Active 1 tablet as needed Glucotrol XL [facility] [address]-35 2.5 MG Orally Once a day Active 1 tablet Aspirin [facility] [address]-36 81 MG Orally Once a day A ctive 1 tablet Toprol XL [facility] [address]-46 50 MG Orally Once a day Oct 18, 2014 Active 1 tablet Flexeril [facility] [address]-44 10 MG Orally once a day Jan 30 015 Mar 31, 2015 Active 1 tablet Social History Social History Element Qualifiers Date Reported Tobacco Use: . Are you a: nonsmoker Jan 30, 2015 Caffeine: . NONE Jan 30, 2015 Do you drink? . NONE Jan 30, 2015 Family history Qualifier Description Comment Date Reported Maternal Grandmother Comment not available Jan 112014 Paternal Grandmother Comment not available Jan 112014 Siblings Comment not available Jan 30 Maternal Grandfather Comment not available Jan 112014 Children Comment not available Jan 30 15 Father unknown Comment not available Jan 30 15 Paternal Grandfather Comment not available Jan 112014 Mother alive BLOOD CLOT Jan 30, 2015 Other: Comment not available Jan 30 15 Vital Signs Date/Time: Jan 30, 2015 Weight 220 lbs Height 69 in Cardiac Monitoring Heart Rate 92 /min Blood Pressure Diastolic 68 mm Hg Blood Pressure Systolic 102 mm Hg Summary Purpose eClinicalWorks Submission
--- OUTSIDE RECORDS SUMMARY | 2019-09-10 18:10 | XMS REPORT ---
Author Author Ted Zheng Organization eClinicalWorks Address Unknown Phone Unavailable Care Team Providers Care Senior System Operator Name Role Phone Osmar Zheng CP Unavailable Allergies No Known Allergies Problems Problem Type Condition Code Onset Dates Condition Statu s Problem CKD (chronic kidney disease) N18.9 Active Problem Hypertension I10 Active Problem DM (diabetes mellitus) E11.9 Activ e Problem Lumbar degenerative disc disease M51.36 Active Problem Elevated lipids E78.5 Active Problem Type 2 diabetes mellitus without complications E11.9 Active Medications No Known Medications Results No Known Results Summary Purpose eClinicalWorks Submission
--- OUTSIDE RECORDS SUMMARY | 2019-09-10 18:10 | XMS REPORT ---
Author Author Ted Zheng [facility] eClinicalWorks Address Unknown Phone Unavailable Care Team Providers Care Transport Pilot Name Role Phone Osmar Zheng CP Unavailable Allergies, Adverse Reactions, Alerts Substance Reaction Event Type N.K.D.A. 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, and urologist [facility] ates Sep 14, 2014 results [facility] Oct 05, 2014 needs an order [facility] Oct 07, 2014 Problems Problem Type Condition ICD-9 Code Onset Dates Condition Statu s Assessment Uncontrolled hypertension 401.9 Ac tive Assessment DM - Diabetes 2 Uncontrolled 250.02 Active Problem DM - Diabetes 2 Uncontrolled 250.02 Active Assessment Tachycardia 785.0 Active Assessment LBP, Lumbago 724.2 Active Assessment Thyroid nodule 241.0 Active Medications Medication Code System Code Instructions Start Date End Date Status Dosage [facility] [address]-48 30 MG Orally Once a day Active 1 tablet Glucotrol [facility] [address]-33 2.5 MG Orally Once a day Active 1 tablet Aspirin [facility] [address]-53 81 MG Orally Once a day A ctive 1 tablet Ambien [facility] [address]-22 5 MG Orally Once a day Ac tive 1 tablet at bedtime Lipitor [facility] [address]-22 80 mg Orally Once a day A ctive 1 tablet Mobic [facility] [address]-12 15 MG Orally Once a day Oct 18 5 Nov 17, 2014 Active 1 tablet Toprol XL [facility] [address]-63 50 MG Orally Once a day Oct 18, 2014 Active 1 tablet Vicodin [facility] [address]-88 5-300 MG Orally every 6 hrs Active 1 tablet as needed Social History Social History Element Qualifiers Date Reported Tobacco Use: . Are you a: nonsmoker Oct 18, 2014 Caffeine: . NONE Oct 18, 2014 Do you drink? . NONE Oct 18, 2014 Vital Signs Date/Time: Oct 18, 2014 Weight 228 lbs Height 69 in Cardiac Monitoring Heart Rate 100 /min Blood Pressure Diastolic 90 mm Hg Blood Pressure Systolic 132 mm Hg Summary Purpose eClinicalWorks Submission
--- OUTSIDE RECORDS SUMMARY | 2019-09-10 18:10 | XMS REPORT ---
Author Author Ted Zheng [facility] eClinicalWorks Address Unknown Phone Unavailable Care Team Providers Care Network Management Specialist Name Role Phone Osmar Zheng CP Unavailable [...] Instructions Start Date End Date Status Dosage Glucotrol XL [facility] 71817154299 2.5 MG Orally Once a day Active 1 tablet Mobic [facility] 06389989413 15 MG Orally Once a day Acti ve 1 tablet Cipro [facility] 91464229268 500 MG Orally every 12 hrs A ctive 1 tablet Acetaminophen-Codeine #3 [facility] 57037668850 300-30 MG Orally every 6-8 hrs Feb 08, 2019 Apr 09, 2019 Active 1 tablet as needed GlipiZIDE ER ND 66780650845 2.5 Active TAKE 1 TABLET BY MOUTH DAILY Atorvastatin Calcium ND 17450297243 80 Active TAKE 1 TABLET BY MOUTH DAILY Aspirin ND 98494484863 81 MG Orally Once a day Acti ve 1 tablet Lisinopril [facility] 63199811265 10 MG Active TAKE 1 TA BLET BY MOUTH EVERY NIGHT AT BEDTIME Toprol XL [facility] 25791920945 25 MG Orally Once a day Oct 18, 2014 Active 1 tablet Paxil [facility] 35594421459 20 MG Orally Once a day Mar 26, 2018 Active 1 tablet at night Vital Signs Date/Time: Mar 08, 2019 BMI 31.45 Index Weight 213 lbs Height 69 in Cardiac Monitoring Heart Rate 76 /min Blood Pressure Diastolic 62 mm Hg Blood Pressure Systolic 100 mm Hg Results No Known Results Summary Purpose eClinicalWorks Submission
--- OUTSIDE RECORDS SUMMARY | 2019-09-10 18:10 | XMS REPORT ---
Author Author Ted Zheng [facility] eClinicalWorks Address Unknown Phone Unavailable Care Team Providers Care Tea Taster Name Role Phone Osmar Zheng CP Unavailable Allergies, Adverse Reactions, Alerts Substance Reaction Event Type N.K.D.A. 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 F/U [facility] April [id number] saw auto transmission mechanic, and urologist [facility] ates Sep 14, 2014 results [facility] Oct 05, 2014 needs an order [facility] Oct 07, 2014 MD Consult [facility] May [address] [place] [address] May 122015 Problems Problem Type Condition ICD-9 Code Onset Dates Condition Statu s Problem Type 2 diabetes mellitus without complications E11.9 Active Assessment Syncopal episodes R55 Active Problem Elevated lipids E78.5 Active Assessment Type 2 diabetes mellitus without complications E11.9 Active Medications Medication Code System Code Instructions Start Date End Date Status Dosage Glucotrol XL [facility] [address]-65 2.5 MG Orally Once a day Active 1 tablet Toprol XL [facility] [address]-90 25 MG Orally Once a day Oct 18, 2014 Active 1 tablet Lisinopril [facility] [address]-20 30 MG Orally Once a day Active 1 tablet [facility] [address]-54 81 MG Orally Once a day A ctive 1 tablet [facility] [address]-13 80 mg Orally Once a day A ctive 1 tablet Social History Social History Element Qualifiers Date Reported Tobacco Use: . Are you a: nonsmoker June 01, 2015 Caffeine: . NONE June 01, 2015 Do you drink? . NONE June 01, 2015 Vital Signs Date/Time: June 01, 2015 Weight 223 lbs Height 69 in Cardiac Monitoring Heart Rate 80 /min Blood Pressure Diastolic 82 mm Hg Blood Pressure Systolic 138 mm Hg Summary Purpose eClinicalWorks Submission
--- OUTSIDE RECORDS SUMMARY | 2019-09-10 18:10 | XMS REPORT ---
Author Author Ted Zheng Organization eClinicalWorks Address Unknown Phone Unavailable Care Team Providers Care Soda Maker Name Role Phone Osmar Zheng CP Unavailable Allergies No Known Allergies Problems Problem Type Condition Code Onset Dates Condition Statu s Problem Type 2 diabetes mellitus without complications E11.9 Active Problem Lumbar degenerative disc disease M51.36 Active Problem Elevated LFTs R94.5 Active Problem Neck swelling R22.1 Active Problem Insomnia G47.00 Active Problem Hypertension I10 Active Problem Elevated lipids E78.5 Active Problem Prostate ca C61 Active Problem CKD (chronic kidney disease) N18.9 Active Medications Medication Code System Code Instructions Start Date End Date Status Dosage Tramadol-Acetaminophen [facility] 62165928763 37.5-325 MG Orally every 8 hrs May 26, 2018 August 24, 2018 Active 1 tablet as needed Results No Known Results Summary Purpose eClinicalWorks Submission
--- OUTSIDE RECORDS SUMMARY | 2019-09-10 18:10 | XMS REPORT ---
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 Are you a: nonsmoker Oct 05, 2014 Caffeine: . NONE Oct 05, 2014 Do you drink? . NONE Oct 05, 2014 Summary Purpose eClinicalWorks Submission
--- OUTSIDE RECORDS SUMMARY | 2019-09-10 18:10 | XMS REPORT ---
Author Author Ted Zheng Organization eClinicalWorks Address Unknown Phone Unavailable Care Team Providers Care Bobbin Disker Name Role Phone Osmar Zheng CP Unavailable Allergies, Adverse Reactions, Alerts Substance Reaction Event Type N.K.D.A. 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 Active Problem Thyromegaly E04.9 Active Problem Insomnia G47.00 Active Problem Preventative health care Z00.00 Act ruddy Problem Prostate ca C61 Active Problem CKD (chronic kidney disease) N18.9 Active Problem Elevated LFTs R94.5 Active Problem Neck swelling R22.1 Active Medications Medication Code System Code Instructions Start Date End Date Status Dosage Atorvastatin Calcium [facility] 81609715072 80 Active TAKE 1 TABLET BY MOUTH DAILY Lipitor [facility] 93081068552 80 mg Orally Once a day Acti ve 1 tablet Ultracet [facility] 36496587150 37.5-325 MG Orally TWICE A DAY Oct 31, 2017 Feb 28, 2018 Active 1 tablet as needed Aspirin ND 45111955227 81 MG Orally Once a day Acti ve 1 tablet Mobic [facility] 46109867677 15 MG Orally Once a day Acti ve 1 tablet GlipiZIDE ER ND 37010698357 2.5 Active TAKE 1 TABLET BY MOUTH DAILY Glucotrol XL [facility] 08721015176 2.5 MG Orally Once a day Active 1 tablet Toprol XL [facility] 97586234716 25 MG Orally Once a day Oct 18, 2014 Active 1 tablet Vital Signs Date/Time: Nov 14, 2017 BMI 36.91 Index Weight 250 lbs Height 69 in Cardiac Monitoring Heart Rate 68 /min Blood Pressure Diastolic 86 mm Hg Blood Pressure Systolic 130 mm Hg Results No Known Results Summary Purpose eClinicalWorks Submission
--- OUTSIDE RECORDS SUMMARY | 2019-09-10 18:10 | XMS REPORT ---
Author Author Ted Zheng Organization eClinicalWorks Address Unknown Phone Unavailable Care Team Providers Care Cement Storage Worker Name Role Phone Osmar Zheng CP Unavailable Allergies, Adverse Reactions, Alerts Substance Reaction Event Type N.K.D.A. Info Not Available Non Drug Allergy Problems Problem Type Condition Code Onset Dates Condition Statu s Problem Lumbar degenerative disc disease M51.36 Active Problem Hypertension I10 Active Problem Elevated lipids E78.5 Active Problem Thyromegaly E04.9 Active Problem Insomnia G47.00 Active Problem Dizziness R42 Active Problem Prostate ca C61 Active Problem CKD (chronic kidney disease) N18.9 Active Problem Elevated LFTs R94.5 Active Problem Neck swelling R22.1 Active Assessment Hypertension I10 Active Assessment Type 2 diabetes mellitus without complications E11.9 Active Assessment Elevated lipids E78.5 Active Problem Type 2 diabetes mellitus without complications E11.9 Active Medications Medication Code System Code Instructions Start Date End Date Status Dosage Mobic [facility] 43456296177 15 MG Orally Once a day Acti ve 1 tablet Glucotrol XL [facility] 16894401886 2.5 MG Orally Once a day Active 1 tablet Lisinopril [facility] 05210376692 10 MG Active TAKE 1 TA BLET BY MOUTH EVERY NIGHT AT BEDTIME Atorvastatin Calcium [facility] 62701027957 80 Active TAKE 1 TABLET BY MOUTH DAILY Toprol XL ND 19894932578 25 MG Orally Once a day Oct 18, 2014 Active 1 tablet Meclizine HCl ND 64244984528 25 MG Orally twice a day Mar 15, 2019 Active 1 tablet as needed Tramadol HCl ND 28505264287 50 MG Orally twice a day MayJuly 02, 2019 Active 1 tablet as needed Paxil [facility] 25343342058 20 MG Orally Once a day Mar 26, 2018 Active 1 tablet at night Aspirin [facility] 54672216565 81 MG Orally Once a day Acti ve 1 tablet Vital Signs Date/Time: June 02, 2019 BMI 32.19 Index Weight 218 lbs Height 69 in Cardiac Monitoring Heart Rate 64 /min Blood Pressure Diastolic 68 mm Hg Blood Pressure Systolic 110 mm Hg Results No Known Results Summary Purpose eClinicalWorks Submission
--- OUTSIDE RECORDS SUMMARY | 2019-09-10 18:10 | XMS REPORT ---
Author Author Ted Zheng Organization eClinicalWorks Address Unknown Phone Unavailable Care Team Providers Care Supervisor Word Processing Name Role Phone Osmar Zheng CP Unavailable [...]
--- OUTSIDE RECORDS SUMMARY | 2019-09-10 18:10 | XMS REPORT ---
Author Author Ted Zheng [facility] eClinicalWorks Address Unknown Phone Unavailable Care Team Providers Care Occupational Health Manager Name Role Phone Osmar Zheng CP Unavailable Allergies, Adverse Reactions, Alerts Substance Reaction Event Type N.K.D.A. Info Not Available Non Drug Allergy Problems Problem Type Condition Code Onset Dates Condition Statu s Problem Type 2 diabetes mellitus without complications E11.9 Active Problem Hypertension I10 Active Problem Elevated lipids E78.5 Active Problem Thyromegaly E04.9 Active Problem Insomnia G47.00 Active Problem Low back pain M54.5 Active Problem Prostate ca C61 Active Problem CKD (chronic kidney disease) N18.9 Active Problem Elevated LFTs R94.5 Active Problem Neck swelling R22.1 Active Assessment Hypertension I10 Active Assessment Type 2 diabetes mellitus without complications E11.9 Active Assessment Low back pain M54.5 Active Assessment Elevated lipids E78.5 Active Problem Lumbar degenerative disc disease M51.36 Active Medications Medication Code System Code Instructions Start Date End Date Status Dosage Acetaminophen-Codeine [facility] 90080548121 300-15 MG Orally ev alvin 8 hrs July 30, 2018 Sep 28, 2018 Active 1-2 tablet as needed for pain Lipitor ND 88562959983 80 mg Orally Once a day Acti ve 1 tablet GlipiZIDE ER [facility] 80322560490 2.5 Active TAKE 1 TABLET BY MOUTH DAILY Mobic [facility] 92435085483 15 MG Orally Once a day Acti ve 1 tablet Lisinopril [facility] 73278545590 10 MG Active TAKE 1 TA BLET BY MOUTH EVERY NIGHT AT BEDTIME Aspirin ND 94418900992 81 MG Orally Once a day Acti ve 1 tablet Atorvastatin Calcium ND 73080644019 80 Active TAKE 1 TABLET BY MOUTH DAILY Glucotrol XL ND 88155590055 2.5 MG Orally Once a day Active 1 tablet Paxil [facility] 46761262215 20 MG Orally Once a day Mar 26, 2018 Active 1 tablet at night Tramadol-Acetaminophen ND 54971549135 37.5-325 MG Orally every 8 hrs May 26, 2018 August 24, 2018 Inactive 1 tablet as needed Toprol XL ND 47887063808 25 MG Orally Once a day Oct 18, 2014 Active 1 tablet Vital Signs Date/Time: July 30, 2018 BMI 31.89 Index Weight 216 lbs Height 69 in Cardiac Monitoring Heart Rate 66 /min Blood Pressure Diastolic 60 mm Hg Blood Pressure Systolic 100 mm Hg Results No Known Results Summary Purpose eClinicalWorks Submission
--- OUTSIDE RECORDS SUMMARY | 2019-09-10 18:10 | XMS REPORT | Continuity of Care Document ---
Author Author [employer] ITA Galvez Organization [email or web address] Information Primary Data Address Unknown Phone Unavailable Care Team Providers Care Cemetery Counselor Name Role Phone [email or web address] Information Exchange Unavailable Un available Problems Problem Status Onset Date Classification Date Reported Comments Source Hypertension Active Problem 07/20/2019 [place] [facility] Elevated lipids Active Problem 07/20/2019 [place] [facility] CKD (chronic kidney disease) A ctive Problem 10/2019 [place] [facility] Type 2 diabetes mellitus without complications Active Problem 07/20/2019 [place] [facility] Lumbar degenerative disc disease Active Problem 10/2019 [facility] DM (diabetes mellitus) Active Problem 03/20/2017 [place] [facility] DM - Diabetes 2 Uncontrolled A ctive Diagnosis 0 10/21/2014 [place] [facility] Uncontrolled hypertension Acti ve Diagnosis 0 10/21/2014 [place] [facility] Tachycardia Active Diagnosis 10/21/2014 [facility] LBP, Lumbago Active Diagnosis 10/21/2014 [facility] Thyroid nodule Active Diagnosis 10/21/2014 [facility] Syncopal episodes Active Diagnosis 06/09/2015 [facility] Colonic polyp Active Diagnosis 02/01/2015 [place] [facility] Essential hypertension Active Diagnosis 02/01/2015 [place] [facility] Renal insufficiency Active Diagnosis 09/21/2015 [facility] Low back pain Active Problem 07/31/2018 [facility] Elevated PSA Active Diagnosis 09/02/2015 [facility] Carpal tunnel syndrome Active Diagnosis 09/02/2015 [facility] DDD (degenerative disc disease), lumbar Active Diagnosis 09/02/2015 [facility] Thyromegaly Active Problem 07/20/2019 [facility] Insomnia Active Problem 07/20/2019 [facility] Preventative health care Active Problem 01/28/2019 [facility] Prostate ca Active Problem 07/20/2019 [facility] Elevated LFTs Active Problem 07/20/2019 [facility] Neck swelling Active Problem 07/20/2019 [facility] Lumbar strain Active Diagnosis 01/28/2019 [facility] UTI (urinary tract infection) Active Diagnosis 0 03/25/2019 [place] [facility] Dizziness Active Problem 07/20/2019 [facility] Cerumen impaction Active Diagnosis 03/25/2019 [facility] Encounter for immunization Act ruddy Diagnosis 1 [facility] Medications Medication Details Route Status Patient Instructions Ordering Provider Order Date Source Tramadol HCl 1 tablet as needed Orally Active 50 MG Orally Once a day Marce 07/19/2019 [place] [facility] Tramadol HCl 1 tablet as needed Orally Active 50 MG Orally twice a day Marce 06/02/2019 [facility] Meclizine HCl 1 tablet as need ed Orally Active 25 MG Orally twice a day Marce 03/15/2019 [facility] Acetaminophen-Codeine #3 1 tab let as needed Orally Active 300-30 MG Orally every 6-8 hrs Marce 02/08/2019 [facility] Acetaminophen-Codeine #3 1 tab let as needed Orally Active 300-30 MG Orally every 6 hrs Marce 01/06/2019 [facility] Acetaminophen-Codeine #3 1 tab let as needed Orally Active 300-30 MG Orally every [address] [facility] Acetaminophen-Codeine 1 tablet as needed Orally Active 300-30 MG Orally every8 hrs Marce 2018 [facility] Acetaminophen-Codeine 1-2 tabl et as needed for pain Orally Active 300-15 MG Orally every 8 hrs S iegler 07/30/2018 [facility] Tramadol-Acetaminophen 1 table t as needed Orally Active 37.5-325 MG Orally every 8 hrs Marce 05/26/2018 [facility] Paxil 1 tablet at night Orally Active 20 MG Orally Once a day Marce 03/26/2018 [place] [facility] Ultracet 1 tablet as needed Orally Active 37.5-325 MG Orally TWICE A DAY Marce 10/31/2017 [facility] Ultracet 1-2 tablets as needed Orally Active 37.5-325 MG Orally every 8 hrs Marce 02/04/2017 [place] [facility] Ultracet 1 tablet Orally Active 37.5-325 MG Orally ever y 6 hrs Marce 12/05/2016 [facility] Cyclobenzaprine HCl 1 tablet Orally Active 5 MG Orally once at night prn Marce 12/20/2015 [facility] Flexeril 1 tablet Orally Active 5 MG Orally one at nig t Marce 09/19/2015 [facility] Flexeril 1 tablet Orally Active 5 MG [facility] Mar[facility] 08/31/2015 [facility] Mobic 1 tablet Orally Active 15 MG Orally Once a day Marce 08/31/2015 [facility] Flexeril 1 tablet Orally Active 10 MG Orally once a day Marce 01/30/2015 [facility] Mobic 1 tablet Orally Active 15 MG Orally Once a day Marce 10/18/2014 [facility] Toprol XL 1 tablet Orally Active 50 MG Orally Once a day Marce 10/18/2014 [facility] Toprol XL 1 tablet Orally Active 25 MG Orally Once a day Marce 10/18/2014 [facility] Toprol XL 1 tablet Orally Active 25 MG Orally Once a day Marce 10/18/2014 [facility] Flexeril 1 tablet Orally Active 10 MG Orally at bedtime Marce 09/14/2014 [facility] Lisinopril 1 tablet Orally Active 30 MG Orally Once a day [facility] Glucotrol XL 1 tablet Orally Active 2.5 MG Orally Once a da y [facility] Aspirin 1 tablet Orally Active 81 MG Orally Once a day [facility] Ambien 1 tablet at bedtime Orally Active 5 MG Orally Once a day [facility] Lipitor 1 tablet Orally Active 80 MG Orally Once a day [facility] Vicodin 1 tablet as needed Orally Active 5-300 MG Orally every 6 hrs [facility] Lisinopril 1 tablet Orally Active 10 MG Orally Once a day [facility] GlipiZIDE ER TAKE 1 TABLET BY MOUTH DAILY NA Active 2. 5 [facility] Mobic 1 tablet Orally Active 15 MG Orally Once a day [facility] Aspirin 1 tablet Orally Active 81 MG Orally Once a day [facility] Atorvastatin Calcium TAKE 1 TA BLET BY MOUTH DAILY NA Active 80 [place] [facility] Lipitor 1 tablet Orally Active 80 mg Orally Once a day Marce [facility] Tramadol not defined NA Active Sieg ler [facility] Glucotrol XL 1 tablet Orally Active 2.5 MG Orally Once a da y Marce [facility] Lisinopril TAKE 1 TABLET BY CA UT EVERY NIGHT AT BEDTIME NA Active 10 MG Marce [facility] Cipro 1 tablet Orally Active 500 MG Orally every 12 hrs Marce [facility] Allergies, Adverse Reactions, Alerts Substance Category Reaction Severity Reaction type Status Date Reported Comments Source N.K.D.A. Adverse Reaction Info Not Available Adverse Reaction 06/02/2019 [facility] Immunizations Immunization Date Given Site Status Last Updated Comments Source Influenza 2018 completed [facility] Influenza 12/20/2015 completed [facility] Results No Data Provided for This Section Pathology Reports No Data Provided for This Section Diagnostic Reports No Data Provided for This Section Consultation Notes No Data Provided for This Section Discharge Summaries No Data Provided for This Section History and Physicals No Data Provided for This Section Vital Signs Vital Sign Value Date Comments Source Weight 218 06/02/2019 [place] [facility] Height 69 0 06/02/2019 [place] [facility] Heart Rate 64 06/02/2019 [place] [facility] Diastolic (mm Hg) 68 06/02/2019 [place] [facility] Systolic (mm Hg) 110 06/02/2019 [place] [facility] Weight 214 03/22/2019 [place] [facility] Height 69 0 03/22/2019 [place] [facility] Heart Rate 64 03/22/2019 [place] [facility] Diastolic (mm Hg) 68 03/22/2019 [place] [facility] Systolic (mm Hg) 102 03/22/2019 [place] [facility] Weight 214 03/15/2019 [place] [facility] Height 69 0 03/15/2019 [place] [facility] Heart Rate 80 03/15/2019 [place] [facility] Diastolic (mm Hg) 64 03/15/2019 [facility] Systolic (mm Hg) 98 03/15/2019 [place] [facility] Weight 213 03/08/2019 [place] [facility] Height 69 0 03/08/2019 [facility] Heart Rate 76 03/08/2019 [facility] Diastolic (mm Hg) 62 03/08/2019 [facility] Systolic (mm Hg) 100 03/08/2019 [facility] Weight 219 02/08/2019 [facility] Height 69 1 [facility] Heart Rate 66 02/08/2019 [facility] Diastolic (mm Hg) 72 02/08/2019 [facility] Systolic (mm Hg) 130 02/08/2019 [facility] Weight 215 11/13/2018 [facility] Height 69 1 [facility] Heart Rate 64 11/13/2018 [facility] Diastolic (mm Hg) 55 11/13/2018 [facility] Systolic (mm Hg) 94 11[facility]13/2018 [facility] Weight 214 2018 [facility] Height 69 0 2018 [facility] Heart Rate 56 2018 [facility] Diastolic (mm Hg) 56 2018 [facility] Systolic (mm Hg) 90 2018 [facility] Weight 216 07/30/2018 [facility] Height 69 0 07/30/2018 [facility] Heart Rate 66 07/30/2018 [facility] Diastolic (mm Hg) 60 07/30/2018 [facility] Systolic (mm Hg) 100 07/30/2018 [facility] Weight 218 04/30/2018 [facility] Height 69 0 04/30/2018 [facility] Heart Rate 60 04/30/2018 [facility] Diastolic (mm Hg) 70 04/30/2018 [facility] Systolic (mm Hg) 120 04/30/2018 [facility] Weight 218 03/26/2018 [facility] Height 69 0 03/26/2018 [facility] Heart Rate 72 03/26/2018 [facility] Diastolic (mm Hg) 68 03/26/2018 [facility] Systolic (mm Hg) 110 03/26/2018 [facility] Weight 250 11/14/2017 [facility] Height 69 1 [facility] Heart Rate 68 11/14/2017 [facility] Diastolic (mm Hg) 86 11/14/2017 [facility] Systolic (mm Hg) 130 11/14/2017 [facility] Weight 224 12/20/2015 [facility] Height 69 1 02/18/2015 [facility] Heart Rate 76 12/20/2015 [facility] Diastolic (mm Hg) 74 12/20/2015 [facility] Systolic (mm Hg) 110 12/20/2015 [facility] Weight 223 09/19/2015 [facility] Height 69 0 09/19/2015 [facility] Heart Rate 88 09/19/2015 [facility] Diastolic (mm Hg) 82 09/19/2015 [facility] Systolic (mm Hg) 138 09/19/2015 [facility] Weight 222 08/31/2015 [facility] Height 69 0 08/31/2015 [facility] Heart Rate 68 08/31/2015 [facility] Diastolic (mm Hg) 76 08/31/2015 [facility] Systolic (mm Hg) 112 08/31/2015 [facility] Weight 223 06/01/2015 [facility] Height 69 0 06/01/2015 [facility] Heart Rate 80 06/01/2015 [facility] Diastolic (mm Hg) 82 06/01/2015 [facility] Systolic (mm Hg) 138 06/01/2015 [facility] Weight 224 05/16/2015 [facility] Height 69 0 05/16/2015 [facility] Heart Rate 68 05/16/2015 [facility] Diastolic (mm Hg) 78 05/16/2015 [facility] Systolic (mm Hg) 150 05/16/2015 [facility] Weight 225 05/08/2015 [facility] Height 69 0 05/08/2015 [facility] Heart Rate 72 05/08/2015 [facility] Diastolic (mm Hg) 82 05/08/2015 [facility] Systolic (mm Hg) 152 05/08/2015 [facility] Weight 220 01/30/2015 [facility] Height 69 1 04/02/2014 [facility] Heart Rate 92 01/30/2015 [facility] Diastolic (mm Hg) 68 01/30/2015 [facility] Systolic (mm Hg) 102 01/30/2015 [facility] Weight 228 10/18/2014 [facility] Height 69 0 10/18/2014 [facility] Heart Rate 100 10/18/2014 [facility] Diastolic (mm Hg) 90 10/18/2014 [facility] Systolic (mm Hg) 132 10/18/2014 [facility] Weight 226 10/05/2014 [facility] Height 69 0 10/05/2014 [facility] Heart Rate 84 10/05/2014 [facility] Diastolic (mm Hg) 76 10/05/2014 [facility] Systolic (mm Hg) 118 10/05/2014 [facility] Encounters Location Location Details Encounter Type Encounter Number Reason For Visit Attending Provider ADM Date DC Date Status Source [facility] saw plumbing and 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 contractor, and urologist [id number] 09/14/2014 09/14/2014 [facility] saw plumbing and heating contractor, and urologist [id number] 09/14/2014 09/14/2014 [facility] saw plumbing and heating contractor, and urologist [id number] 09/14/2014 09/14/2014 [facility] saw plumbing and heating contractor, and urologist [id number] 09/14/2014 09/14/2014 [facility] saw plumbing and heating contractor, and urologist [id number] 09/14/2014 09/14/2014 [facility] saw plumbing and heating contractor, and urologist [id number] 09/14/2014 09/14/2014 [facility] saw plumbing and heating contractor, and urologist [id number] 09/14/2014 09/14/2014 [facility] saw plumbing and heating contractor, and urologist [id number] 09/14/2014 09/14/2014 [facility] saw plumbing and heating contractor, and urologist [id number] 09/14/2014 09/14/2014 [facility] saw plumbing and heating contractor, and urologist [id number] 09/14/2014 09/14/2014 [facility] saw plumbing and heating contractor, and urologist [id number] 09/14/2014 09/14/2014 [facility] saw plumbing and heating contractor, and urologist [id number] 09/14/2014 09/14/2014 [facility] saw plumbing and heating contractor, and urologist [id number] 09/14/2014 09/14/2014 [facility] results [id number] 10/06/19 15 10/05/2014 [facility] results [id number] 10/06/19 15 10/05/2014 [facility] results [id number] 10/06/19 15 10/05/2014 [facility] results [id number] 10/06/19 15 10/05/2014 [facility] results [id number] 10/06/19 15 10/05/2014 [facility] results [id number] 10/06/19 15 10/05/2014 [facility] results [id number] 10/06/19 15 10/05/2014 [facility] results [id number] 10/06/19 15 10/05/2014 [facility] results [id number] 10/06/19 15 10/05/2014 [facility] results [id number] 10/06/19 15 10/05/2014 [facility] results [id number] 10/06/19 15 10/05/2014 [facility] results [id number] 10/06/19 15 10/05/2014 [facility] results [id number] 10/06/19 15 10/05/2014 [facility] needs an order [id number] 10/07/2014 10/07/2014 [facility] needs an order [id number] 10/07/2014 10/07/2014 [facility] needs an order [id number] 10/07/2014 10/07/2014 [facility] needs an order [id number] 10/07/2014 10/07/2014 [facility] needs an order [id number] 10/07/2014 10/07/2014 [facility] needs an order [id number] 10/07/2014 10/07/2014 [facility] needs an order [id number] 10/07/2014 10/07/2014 [facility] needs an order [id number] 10/07/2014 10/07/2014 [facility] needs an order [id number] 10/07/2014 10/07/2014 [facility] needs an order [id number] 10/07/2014 10/07/2014 [facility] needs an order [id number] 10/07/2014 10/07/2014 [facility] needs an order [id number] 10/07/2014 10/07/2014 [facility] needs an order [id number] 10/07/2014 10/07/2014 [facility] biopsy /u [id number] 10/19/19 15 10/18/2014 [facility] biopsy /u [id number] 10/19/19 15 10/18/2014 [facility] biopsy /u [id number] 10/19/19 15 10/18/2014 [facility] biopsy /u [id number] 10/19/19 15 10/18/2014 [facility] biopsy /u [id number] 10/19/19 15 10/18/2014 [facility] biopsy /u [id number] 10/19/19 15 10/18/2014 [facility] biopsy /u [id number] 10/19/19 15 10/18/2014 [facility] biopsy /u [id number] 10/19/19 15 10/18/2014 [facility] biopsy /u [id number] 10/19/19 15 10/18/2014 [facility] biopsy /u [id number] 10/19/19 15 10/18/2014 [facility] biopsy /u [id number] 10/19/19 15 10/18/2014 [facility] Unknown [id number] 11/02/19 15 11/01/2014 [facility] Unknown [id number] 11/02/19 15 11/01/2014 [facility] Unknown [id number] 11/02/19 15 11/01/2014 [facility] Unknown [id number] 11/02/19 15 11/01/2014 [facility] Unknown [id number] 11/02/19 15 11/01/2014 [facility] Unknown [id number] 11/02/19 15 11/01/2014 [facility] Unknown [id number] 11/02/19 15 11/01/2014 [facility] Unknown [id number] 11/02/19 15 11/01/2014 [facility] Unknown [id number] 11/02/19 15 11/01/2014 [facility] Unknown [id number] 11/02/19 15 11/01/2014 [facility] 3 months f/u [id number] 01/31/20 15 01/30/2015 [facility] 3 months f/u [id number] 01/31/20 15 01/30/2015 [facility] 3 months f/u [id number] 01/31/20 15 01/30/2015 [facility] 3 months f/u [id number] 01/31/20 15 01/30/2015 [facility] 3 months f/u [id number] 01/31/20 15 01/30/2015 [facility] 3 months f/u [id number] 01/31/20 15 01/30/2015 [facility] 3 months f/u [id number] 01/31/20 15 01/30/2015 [facility] 3 months f/u [id number] 01/31/20 15 01/30/2015 [facility] 3 months f/u [id number] 01/31/20 15 01/30/2015 [facility] 3 months f/u [id number] 01/31/20 15 01/30/2015 [facility] BILINGUAL TRAINER F/U [id number] 05/08/2015 05/08/2015 [facility] BILINGUAL TRAINER F/U [id number] 05/08/2015 05/08/2015 [facility] BILINGUAL TRAINER F/U [id number] 05/08/2015 05/08/2015 [facility] BILINGUAL TRAINER F/U [id number] 05/08/2015 05/08/2015 [facility] BILINGUAL TRAINER F/U [id number] 05/08/2015 05/08/2015 [facility] [facility] BILINGUAL TRAINER F/U [id number] 05/08/2015 05/08/2015 [facility] BILINGUAL TRAINER F/U [id number] 05/08/2015 05/08/2015 [facility] BILINGUAL TRAINER F/U [id number] 05/08/2015 05/08/2015 [facility] BILINGUAL TRAINER F/U [id number] 05/08/2015 05/08/2015 [facility] MD Consult [id number] 05/16/19 16 05/16/2015 [facility] Consult [id number] 05/16/19 16 05/16/2015 [facility] Consult [id number] 05/16/19 16 05/16/2015 [facility] Consult [id number] 05/16/19 16 05/16/2015 [facility] MD Consult [id number] 05/16/19 16 05/16/2015 [facility] MD Consult [id number] 05/16/19 16 05/16/2015 [facility] MD Consult [id number] 05/16/19 16 05/16/2015 [facility] MD Consult [id number] 05/16/19 16 05/16/2015 [facility] [id number] 06/01/19 16 06/01/2015 [facility] [id number] 06/01/19 16 06/01/2015 [facility] [id number] 06/01/19 16 06/01/2015 [facility] [id number] 06/01/19 16 06/01/2015 [facility] [id number] 06/01/19 16 06/01/2015 [facility] [id number] 06/01/19 16 06/01/2015 [facility] [id number] 06/01/19 16 06/01/2015 [facility] [id number] 06/20/19 16 06/20/2015 [facility] Unknown [id number] 06/20/19 16 06/20/2015 [facility] Unknown [id number] 06/20/19 16 06/20/2015 [facility] Unknown [id number] 06/20/19 16 06/20/2015 [facility] Unknown [id number] 06/20/19 16 06/20/2015 [facility] Unknown [id number] 06/20/19 16 06/20/2015 [facility] Unknown [id number] 06/20/19 16 06/20/2015 [facility] Unknown [id number] 06/20/19 16 06/20/2015 [facility] Unknown [id number] 06/20/19 16 06/20/2015 [facility] Unknown [id number] 06/20/19 16 06/20/2015 [facility] Unknown [id number] 06/20/19 16 06/20/2015 [facility] 3m [id number] 08/31/19 16 08/31/2015 [facility] 3m [id number] 08/31/19 16 08/31/2015 [facility] 3m [id number] 08/31/19 16 08/31/2015 [facility] 3m [id number] 08/31/19 16 08/31/2015 [facility] 2wk [id number] 09/19/19 16 09/19/2015 [facility] 2wk [id number] 09/19/19 16 09/19/2015 [facility] 2wk [id number] 09/19/19 16 09/19/2015 [facility] 3mo [id number] 12/20/19 16 12/20/2015 [facility] 3mo [id number] 12/20/19 16 12/20/2015 [facility] Refill [id number] 04/09/19 17 04/09/2016 [place] [facility] Procedures No Data Provided for This Section Assessment and Plan No Data Provided for This Section Plan of Care No Data Provided for This Section Social History Social History Date Source Social History ElementQualifiersDate Rep orted Tobacco Use: . Are you a: nonsmoker Mar 25, 2016 Caffeine: . NONE Mar 25, 2016 Do you drink? . NONE Mar 25, 2016 03/25/2016 [facility] Family History Value Date S ource QualifierDescriptionCommentDate Reported Maternal Grandmother Comment not available Jan 30, 2015 Paternal Grandmother Comment not available Jan 30, 2015 Siblings Comment not available Jan 30, 2015 Maternal Grandfather Comment not available Jan 30, 2015 Children Comment not available Jan 30, 2015 Father unknown Comment not available Jan 30, 2015 Paternal Grandfather Comment not available Jan 30, 2015 Mother alive BLOOD CLOT Jan 30, 2015 Other: Comment not available Jan 30, 2015 02/01/2015 [facility] Advance Directives No Data Provided for This Section Functional Status No Data Provided for This Section
--- OUTSIDE RECORDS SUMMARY | 2019-09-10 18:10 | XMS REPORT ---
Author Author Ted Zheng Organization e[employer] Address Unknown Phone Unavailable Care Team Providers Care Home Health Scheduler Name Role Phone Osmar Zheng CP Unavailable [...] Active Problem Neck swelling R22.1 Active Assessment Type 2 diabetes mellitus without complications E11.9 Active Assessment Preventative health care Z00.00 Act ruddy Assessment Elevated lipids E78.5 Active Assessment CKD (chronic kidney disease) N18.9 Active Problem Type 2 diabetes mellitus without complications E11.9 Active Medications Medication Code System Code Instructions Start Date End Date Status Dosage Toprol XL [facility] 87493582983 25 MG Orally Once a day Oct 18, 2014 Active 1 tablet Aspirin ND 27188319281 81 MG Orally Once a day Acti ve 1 tablet Acetaminophen-Codeine #3 ND 50534894558 300-30 MG Orally every 8 hrs 2018 Jan 05, 2019 Active 1 tablet as needed Glucotrol XL ND 88775302681 2.5 MG Orally Once a day Active 1 tablet GlipiZIDE ER ND 83057594383 2.5 Active TAKE 1 TABLET BY MOUTH DAILY Atorvastatin Calcium ND 77771858488 80 Active TAKE 1 TABLET BY MOUTH DAILY Lisinopril ND 52758082866 10 MG Active TAKE 1 TA BLET BY MOUTH EVERY NIGHT AT BEDTIME Acetaminophen-Codeine [facility] [address]-60 300-30 MG Orally e very8 hrs 2018 Jan 05, 2019 Active 1 tablet as needed Paxil ND 39638481465 20 MG Orally Once a day Mar 26, 2018 Active 1 [facility] 68220174491 15 MG Orally Once a day Acti ve 1 tablet Vital Signs Date/Time: Nov 13, 2018 BMI 31.75 Index Weight 215 lbs Height 69 in Cardiac Monitoring Heart Rate 64 /min Blood Pressure Diastolic 55 mm Hg Blood Pressure Systolic 94 mm Hg Results No Known Results Summary Purpose eClinicalWorks Submission
--- OUTSIDE RECORDS SUMMARY | 2019-09-10 18:10 | XMS REPORT ---
Author Author Ted Zheng Organization [employer] Address Unknown Phone Unavailable Care Team Providers Care Bag Machine Tender Name Role Phone Osmar Zheng CP Unavailable Allergies No Known Allergies Problems Problem Type Condition Code Onset Dates Condition Statu s Problem Hypertension I10 Active Problem Elevated lipids E78.5 Active Problem CKD (chronic kidney disease) N18.9 Active Problem Type 2 diabetes mellitus without complications E11.9 Active Problem Lumbar degenerative disc disease M51.36 Active Medications No Known Medications Results No Known Results Summary Purpose eClinicalWorks Submission
--- OUTSIDE RECORDS SUMMARY | 2019-09-10 18:10 | XMS REPORT ---
Author Author Ted Zheng [facility] e[employer] Address Unknown Phone Unavailable Care Team Providers Care Rn Medical Surgical Name Role Phone Osmar Zheng CP Unavailable Allergies, Adverse Reactions, Alerts Substance Reaction Event Type N.K.D.A. 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 Active Problem Dizziness R42 Active Problem Neck swelling R22.1 Active Problem Prostate ca C61 Active Problem Insomnia G47.00 Active Problem Elevated LFTs R94.5 Active Assessment Dizziness R42 Active Assessment Cerumen impaction H61.20 Active Problem Type 2 diabetes mellitus without complications E11.9 Active Assessment UTI (urinary tract infection) N39.0 Active Problem Lumbar degenerative disc disease M51.36 Active Medications Medication Code System Code Instructions Start Date End Date Status Dosage Atorvastatin Calcium [facility] 42544246386 80 Active TAKE 1 TABLET BY MOUTH DAILY GlipiZIDE ER [facility] 12895067716 2.5 Active TAKE 1 TABLET BY MOUTH DAILY Glucotrol XL [facility] 32276287071 2.5 MG Orally Once a day Active 1 tablet Paxil [facility] 82228714503 20 MG Orally Once a day Mar 26, 2018 Active 1 tablet at night Aspirin [facility] 19779806968 81 MG Orally Once a day Acti ve 1 tablet Toprol XL [facility] 57353695421 25 MG Orally Once a day Oct 18, 2014 Active 1 tablet Acetaminophen-Codeine #3 [facility] 48881119682 300-30 MG Orally every 6-8 hrs Feb 08, 2019 Apr 09, 2019 Active 1 tablet as needed Mobic [facility] 23165096354 15 MG Orally Once a day Acti ve 1 tablet Lisinopril [facility] 22354427701 10 MG Active TAKE 1 TA BLET BY MOUTH EVERY NIGHT AT BEDTIME Meclizine HCl [facility] 91899190690 25 MG Orally twice a day Mar 15, 2019 Active 1 tablet as needed Vital Signs Date/Time: Mar 15, 2019 BMI 31.60 Index Weight 214 lbs Height 69 in Cardiac Monitoring Heart Rate 80 /min Blood Pressure Diastolic 64 mm Hg Blood Pressure Systolic 98 mm Hg Results No Known Results Summary Purpose eClinicalWorks Submission
--- OUTSIDE RECORDS SUMMARY | 2019-09-10 18:10 | XMS REPORT ---
Author Author Ted Zheng [facility] eClinicalWorks Address Unknown Phone Unavailable Care Team Providers Care Piper Helper Name Role Phone Osmar Zheng CP Unavailable [...] Active Problem Elevated LFTs R94.5 Active Assessment Lumbar degenerative disc disease M51.36 Active Assessment Type 2 diabetes mellitus without complications E11.9 Active Assessment Elevated lipids E78.5 Active Problem Type 2 diabetes mellitus without complications E11.9 Active Assessment Hypertension I10 Active Problem Lumbar degenerative disc disease M51.36 Active Medications Medication Code System Code Instructions Start Date End Date Status Dosage Atorvastatin Calcium [facility] 47220246969 80 Active TAKE 1 TABLET BY MOUTH DAILY Mobic [facility] 44779813654 15 MG Orally Once a day Acti ve 1 tablet Paxil [facility] 94261657799 20 MG Orally Once a day Mar 26, 2018 Active 1 tablet at night Aspirin [facility] 61869661761 81 MG Orally Once a day Acti ve 1 tablet Acetaminophen-Codeine #3 [facility] 68828176226 300-30 MG Orally every 6-8 hrs Feb 08, 2019 Apr 09, 2019 Active 1 tablet as needed Lisinopril [facility] 34566235881 10 MG Active TAKE 1 TA BLET BY MOUTH EVERY NIGHT AT BEDTIME Glucotrol XL [facility] 43268627862 2.5 MG Orally Once a day Active 1 tablet GlipiZIDE ER [facility] 32467677887 2.5 Active TAKE 1 TABLET BY MOUTH DAILY Toprol XL [facility] 08967840198 25 MG Orally Once a day Oct 18, 2014 Active 1 tablet Vital Signs Date/Time: Feb 08, 2019 BMI 32.34 Index Weight 219 lbs Height 69 in Cardiac Monitoring Heart Rate 66 /min Blood Pressure Diastolic 72 mm Hg Blood Pressure Systolic 130 mm Hg Results Name Result Date Reference Range Unit Abnormali ty Flag A1c ----A1c 6.0% [id number] Summary Purpose eClinicalWorks Submission
--- OUTSIDE RECORDS SUMMARY | 2019-09-10 18:10 | XMS REPORT ---
Author Author Ted Zheng Organization eClinicalWorks Address Unknown Phone Unavailable Care Team Providers Care Spike Driver Name Role Phone Osmar Zheng CP Unavailable [...] Instructions Start Date End Date Status Dosage Ultracet [facility] 87327035149 37.5-325 MG Orally every 8 hrs Feb 04, 2017 Apr 05, 2017 Active 1-2 tablets as needed Results No Known Results Summary Purpose eClinicalWorks Submission
--- OUTSIDE RECORDS SUMMARY | 2019-09-10 18:10 | XMS REPORT ---
Author Author Ted Zheng Organization eClinicalWorks Address Unknown Phone Unavailable Care Team Providers Care Developer Designer Name Role Phone Osmar Zheng Unavailable Encounters Encounter Location Date biopsy /u [facility] Oct Unknown [facility] Oct 3 months f/u [facility] Jan 30, 2015 ARMORED CAR GUARD F/U [facility] April [id number] saw senior applications architect, and urologist [facility] ates Sep 14, 2014 results [facility] Oct 05, 2014 needs an order [facility] Oct 07, 2014 Unknown [facility] June 20, 2015 MD Consult [facility] May [address] [place] [address] May 122015 Problems Problem Type Condition ICD-9 Code Onset Dates Condition Statu s Problem Type 2 diabetes mellitus without complications E11.9 Active Problem Elevated lipids E78.5 Active Medications Medication Code System Code Instructions Start Date End Date Status Dosage Lisinopril [facility] [address]-99 10 MG Orally Once a day Active 1 tablet Social History Social History Element Qualifiers Date Reported Tobacco Use: . Are you a: nonsmoker June 01, 2015 Caffeine: . NONE June 01, 2015 Do you drink? . NONE June 01, 2015 Summary Purpose eClinicalWorks Submission
--- OUTSIDE RECORDS SUMMARY | 2019-09-10 18:10 | XMS REPORT ---
Author Author Ted Zheng Organization eClinicalWorks Address Unknown Phone Unavailable Care Team Providers Care Jacquard Loom Card Changer Name Role Phone Osmar Zheng CP Unavailable [...] Date End Date Status Dosage Ultracet [facility] 07713882531 37.5-325 MG Orally every 6 hrs Dec 05, 2016 Jan 04, 2017 Active 1 tablet Results No Known Results Summary Purpose eClinicalWorks Submission
--- OUTSIDE RECORDS SUMMARY | 2019-09-10 18:10 | XMS REPORT ---
Author Author Ted Zheng Organization eClinicalWorks Address Unknown Phone Unavailable Care Team Providers Care Special Loan Officer Name Role Phone Osmar Zheng CP Unavailable Allergies, Adverse Reactions, Alerts Substance Reaction Event Type N.K.D.A. Info Not Available Non Drug Allergy Encounters Encounter Location Date saw tax accounting manager, and urologist [facility] ates Sep 14, 2014 results [facility] Oct 05, 2014 needs an order [facility] Oct 07, 2014 Problems Problem Type Condition ICD-9 Code Onset Dates Condition Statu s Assessment Thyroid nodule 241.0 Active Assessment DM - Diabetes 2 Uncontrolled 250.02 Active Problem DM - Diabetes 2 Uncontrolled 250.02 Active Medications Medication Code System Code Instructions Start Date End Date Status Dosage [facility] [address]-43 5-300 MG Orally every 6 hrs Active 1 tablet as needed Flexeril [facility] [address]-81 10 MG Orally at bedtime Sep 14, 015 Oct 14, 2014 Active 1 tablet [facility] [address]-63 2.5 MG Orally Once a day Active 1 tablet Aspirin [facility] [address]-12 81 MG Orally Once a day A ctive 1 tablet Lipitor [facility] [address]-10 80 mg Orally Once a day A ctive 1 tablet Ambien [facility] [address]-11 5 MG Orally Once a day Ac tive 1 tablet at bedtime Lisinopril [facility] [address]-37 30 MG Orally Once a day Active 1 tablet Social History Social History Element Qualifiers Date Reported Tobacco Use: . Are you a: nonsmoker Oct 05, 2014 Caffeine: . NONE Oct 05, 2014 Do you drink? . NONE Oct 05, 2014 Vital Signs Date/Time: Oct 05, 2014 Weight 226 lbs Height 69 in Cardiac Monitoring Heart Rate 84 /min Blood Pressure Diastolic 76 mm Hg Blood Pressure Systolic 118 mm Hg Summary Purpose eClinicalWorks Submission
--- OUTSIDE RECORDS SUMMARY | 2019-09-10 18:10 | XMS REPORT ---
Author Author Ted Zheng Organization eClinicalWorks Address Unknown Phone Unavailable Care Team Providers Care Engineering Agent Name Role Phone Osmar Zheng CP Unavailable [...] diabetes mellitus without complications E11.9 Active Assessment Neck swelling R22.1 Active Problem Type 2 diabetes mellitus without complications E11.9 Active Medications Medication Code System Code Instructions Start Date End Date Status Dosage GlipiZIDE ER [facility] 25940911452 2.5 Active TAKE 1 TABLET BY MOUTH DAILY Toprol XL [facility] 98332029983 25 MG Orally Once a day Oct 18, 2014 Active 1 tablet Atorvastatin Calcium [facility] 98938635458 80 Active TAKE 1 TABLET BY MOUTH DAILY Mobic [facility] 73061904302 15 MG Orally Once a day Acti ve [address] [facility] 94820235596 20 MG Orally Once a day Mar 26, 2018 Active 1 tablet at night Aspirin ND 37497862353 81 MG Orally Once a day Acti ve 1 tablet Tramadol NDC 0 Active not defined Lipitor ND 44768127679 80 mg Orally Once a day Acti ve 1 tablet Glucotrol XL [facility] 77736866594 2.5 MG Orally Once a day Active 1 tablet Vital Signs Date/Time: April 30, 2018 BMI 32.19 Index Weight 218 lbs Height 69 in Cardiac Monitoring Heart Rate 60 /min Blood Pressure Diastolic 70 mm Hg Blood Pressure Systolic 120 mm Hg Results No Known Results Summary Purpose eClinicalWorks Submission
--- OUTSIDE RECORDS SUMMARY | 2019-09-10 18:10 | XMS REPORT ---
Author Author Ted Zheng [facility] eClinicalWorks Address Unknown Phone Unavailable Care Team Providers Care Broadcast Operations Director Name Role Phone Osmar Zheng CP Unavailable Allergies, Adverse Reactions, Alerts Substance Reaction Event Type N.K.D.A. Info Not Available Non Drug Allergy Encounters Encounter Location Date biopsy /u [facility] Oct Unknown [facility] Oct 3 months f/u [facility] Jan 30, 2015 TRANSPORT OPERATIONS INSPECTOR F/U [facility] April [id number] saw space and missile defense operations, and urologist [facility] ates Sep 14, 2014 results [facility] Oct 05, 2014 needs an order [facility] Oct 07, 2014 MD Consult [facility] May Problems Problem Type Condition ICD-9 Code Onset Dates Condition Statu s Problem Type 2 diabetes mellitus without complications E11.9 Active Assessment Syncopal episodes R55 Active Problem Elevated lipids E78.5 Active Assessment Elevated lipids E78.5 Active Assessment Type 2 diabetes mellitus without complications E11.9 Active Assessment Hypertension I10 Active Medications Medication Code System Code Instructions Start Date End Date Status Dosage Lisinopril [facility] [address]-90 30 MG Orally Once a day Active 1 tablet Glucotrol XL [facility] [address]-91 2.5 MG Orally Once a day Active 1 tablet Lipitor [facility] [address]-09 80 mg Orally Once a day A ctive 1 tablet Toprol XL [facility] [address]-00 25 MG Orally Once a day Oct 18, 2014 Active 1 tablet Aspirin [facility] [address]-65 81 MG Orally Once a day A ctive 1 tablet Social History Social History Element Qualifiers Date Reported Tobacco Use: . Are you a: nonsmoker May 16, 2015 Caffeine: . NONE May 16, 2015 Do you drink? . NONE May 16, 2015 Vital Signs Date/Time: May 16, 2015 Weight 224 lbs Height 69 in Cardiac Monitoring Heart Rate 68 /min Blood Pressure Diastolic 78 mm Hg Blood Pressure Systolic 150 mm Hg Summary Purpose eClinicalWorks Submission
--- OUTSIDE RECORDS SUMMARY | 2019-09-10 18:10 | XMS REPORT ---
Author Author Ted Zheng Organization eClinicalWorks Address Unknown Phone Unavailable Care Team Providers Care Consumer Lender Name Role Phone Osmar Zheng CP Unavailable Allergies, Adverse Reactions, Alerts Substance Reaction Event Type N.K.D.A. Info Not Available Non Drug Allergy Encounters Encounter Location Date biopsy /u [facility] Oct Unknown [facility] Oct 3 months f/u [facility] Jan 30, 2015 SEAPORT PLANNING MANAGER F/U [facility] April [id number] saw community relations advisor, and urologist [facility] ates Sep 14, 2014 results [facility] Oct 05, 2014 needs an order [facility] Oct 07, 2014 Problems Problem Type Condition ICD-9 Code Onset Dates Condition Statu s Problem Type 2 diabetes mellitus without complications E11.9 Active Assessment Syncopal episodes R55 Active Problem Elevated lipids E78.5 Active Medications Medication Code System Code Instructions Start Date End Date Status Dosage Toprol XL [facility] [address]-04 25 MG Orally Once a day Oct 18, 2014 Active 1 tablet Lipitor [facility] [address]-76 80 mg Orally Once a day A ctive 1 tablet Glucotrol XL [facility] [address]-51 2.5 MG Orally Once a day Active 1 tablet Aspirin [facility] [address]-17 81 MG Orally Once a day A ctive 1 tablet Lisinopril [facility] [address]-79 30 MG Orally Once a day Active 1 tablet Social History Social History Element Qualifiers Date Reported Tobacco Use: . Are you a: nonsmoker May 08, 2015 Caffeine: . NONE May 08, 2015 Do you drink? . NONE May 08, 2015 Vital Signs Date/Time: May 08, 2015 Weight 225 lbs Height 69 in Cardiac Monitoring Heart Rate 72 /min Blood Pressure Diastolic 82 mm Hg Blood Pressure Systolic 152 mm Hg Summary Purpose eClinicalWorks Submission
--- OUTSIDE RECORDS SUMMARY | 2019-09-10 18:10 | XMS REPORT ---
Author Author Ted Zheng Organization [employer] Address Unknown Phone Unavailable Care Team Providers Care Neurophysiological Technician Name Role Phone Osmar Zheng CP Unavailable [...] diabetes mellitus without complications E11.9 Active Assessment Encounter for immunization Z23 A ctive Assessment Elevated lipids E78.5 Active Problem Type 2 diabetes mellitus without complications E11.9 Active Medications Medication Code System Code Instructions Start Date End Date Status Dosage Mobic [facility] 14608389167 15 MG Orally Once a day Acti ve 1 tablet Atorvastatin Calcium [facility] 07555356042 80 Active TAKE 1 TABLET BY MOUTH DAILY Aspirin [facility] 53660475641 81 MG Orally Once a day Acti ve 1 tablet Lisinopril [facility] 16043586666 10 MG Active TAKE 1 TA BLET BY MOUTH EVERY NIGHT AT BEDTIME GlipiZIDE ER [facility] 82092022632 2.5 Active TAKE 1 TABLET BY MOUTH DAILY Acetaminophen-Codeine [facility] [address]-40 300-30 MG Orally e very8 hrs 2018 Jan 05, 2019 Active 1 tablet as needed Acetaminophen-Codeine #3 [facility] 86462880380 300-30 MG Orally every 8 hrs 2018 Jan 05, 2019 Active 1 tablet as needed Paxil [facility] 15508191583 20 MG Orally Once a day Mar 26, 2018 Active 1 tablet at night Glucotrol XL ND 26522467780 2.5 MG Orally Once a day Active 1 tablet Toprol XL [facility] 36721576473 25 MG Orally Once a day Oct 18, 2014 Active 1 tablet Vital Signs Date/Time: 2018 BMI 31.60 Index Weight 214 lbs Height 69 in Cardiac Monitoring Heart Rate 56 /min Blood Pressure Diastolic 56 mm Hg Blood Pressure Systolic 90 mm Hg Results Name Result Date Reference Range Unit Abnormali ty Flag 6051 URINALYSIS (CULTURE IF INDICATED) ----BILIRUBIN NEGATIVE [id number] NEGATIVE ----UROBILINOGEN <2.0 57253339 <=2.0 MG/DL ----SPECIFIC GRAVITY 1.014 [id number] 1.005-1.035 ----LEUKOCYTE ESTERASE NEGATIVE 20181106 NEGATIVE ----NITRITE NEGATIVE 20181106 NEGATIVE ----pH 5.0 24998276 5.0-9.0 ----PROTEIN NEGATIVE 74511352 NEGATIVE ----GLUCOSE NEGATIVE 20181106 NEGATIVE ----KETONES NEGATIVE 20181106 NEGATIVE ----COLOR YELLOW 20181106 YELLOW-STRAW ----OCCULT BLOOD NEGATIVE 99715091 NEGATIVE ----APPEARANCE CLEAR 20181106 CLEAR A1c ----A1c 5.8% 20181106 72015 SIEGLSL MALE >40 PROFILE ----BILIRUBIN, DIRECT 0.1 20181106 0.0-0.3 MG/DL ----ALKALINE PHOSPHATASE 94 20181106 40-125 U/L ----AST 27 20181106 9-50 U/L ----ALT 23 20181106 5-50 U/L ----MCV 86.8 40625784 80.0-100.0 fL ---- eGFR AMER. 49 53136452 >60 ML/MIN/1.73 L ----MCH 28.2 [id number] 27.0-34.0 PG ---- eGFR NON- AMER. 42 97799692 >60 ML/MIN/1 .73 L ----BUN 17 47594051 8-23 MG/DL ----CREATININE 1.55 80021490 0.80-1.40 MG/DL H ----WBC 8.7 59921034 4.0-11.0 K/UL ----RBC 4.68 66829046 4.10-5.70 M/UL ----GLUCOSE 137 20181106 70-99 MG/DL H ----HEMOGLOBIN 13.2 93556411 13.0-17.0 G/DL ----HEMATOCRIT 40.6 69445454 37.0-49.0 % ----SODIUM 144 20181106 133-146 MEQ/L ----URIC ACID 4.9 21724578 3.7-8.0 MG/DL ----CHLORIDE 103 20181106 95-107 MEQ/L ----POTASSIUM 4.9 09801740 3.5-5.4 MEQ/L ----LYMPHOCYTES 15.7 48372987 19.0-48.0 % L ----MONOCYTES 7.9 25724366 4.0-13.0 % ----RDW 13.3 26233317 11.0-15.0 % ----NEUTROPHILS 73.7 25874543 40.0-74.0 % ----CALCIUM 10.2 86043276 8.5-10.5 MG/DL ----MCHC 32.5 18849598 32.0-35.5 G/DL ----CHOLESTEROL 166 76285785 <200 MG/DL ----CARBON DIOXIDE 27 20181106 19-31 MEQ/L ----CALC LDL CHOL 99 53054505 <100 MG/DL ----RISK RATIO LDL/HDL 2.40 50911366 <3.55 RATIO ----TSH, THIRD GENERATION 1.310 63644026 0.400-4.100 UIU/ML ----TRIGLYCERIDES 132 26437160 <150 MG/DL ----HDL CHOLESTEROL 41 91877272 >39 MG/DL ----PLATELET COUNT 348 20181106 130-400 K/UL ----BILIRUBIN, TOTAL 0.4 45236385 <=1.2 MG/DL ----PSA, TOTAL 3.32 29836820 <=4.00 NG/ML ----EOSINOPHILS 2.1 43156138 0.0-7.0 % ----PROTEIN, TOTAL 7.8 76152460 6.1-8.3 G/DL ----BASOPHILS 0.6 39708296 0.0-2.0 % ----ALBUMIN 4.6 80576915 3.5-5.2 G/DL Immunizations Vaccine Administration Date Influenza 2018 Summary Purpose eClinicalWorks Submission
--- OUTSIDE RECORDS SUMMARY | 2019-09-10 18:10 | XMS REPORT ---
Author Author Ted Zheng [facility] eClinicalWorks Address Unknown Phone Unavailable Care Team Providers Care Fire Extinguisher Tester Name Role Phone Osmar Zheng CP Unavailable Allergies, Adverse Reactions, Alerts Substance Reaction Event Type N.K.D.A. Info Not Available Non Drug Allergy Encounters Encounter Location Date biopsy /u [facility] Oct Unknown [facility] Oct 3 months f/u [facility] Jan 30, 2015 WINDOWS TECHNICAL SPECIALIST F/U [facility] April [id number] saw inbound sales manager, and urologist [facility] ates Sep 14, 2014 Unknown [facility] June 20, 2015 results [facility] Oct 05, [address] [place] [address] August needs an order [facility] Oct 07, 2014 Unknown [facility] June 20, 2015 MD Consult [facility] May [address] [place] [address] May 122015 Problems Problem Type Condition ICD-9 Code Onset Dates Condition Statu s Assessment Elevated PSA R97.2 Active Problem Type 2 diabetes mellitus without complications E11.9 Active Assessment DM (diabetes mellitus) E11.9 Activ e Problem Elevated lipids E78.5 Active Assessment Carpal tunnel syndrome G56.00 Activ e Assessment DDD (degenerative disc disease), lumbar M51.36 Active Assessment Hypertension I10 Active Assessment Elevated lipids E78.5 Active Medications Medication Code System Code Instructions Start Date End Date Status Dosage Glucotrol XL [facility] [address]-22 2.5 MG Orally Once a day Active 1 tablet [facility] [address]-16 5 MG Orally once at night AugustSeptember 10, 2015 Active 1 tablet Lipitor [facility] [address]-61 80 MG Orally Once a day A ctive 1 tablet Aspirin [facility] [address]-29 81 MG Orally Once a day A ctive 1 tablet Toprol [facility] [address]-70 25 MG Orally Once a day Oct 18, 2014 Active 1 tablet Mobic [facility] [address]-97 15 MG Orally Once a day August 30 6 Dec 29, 2015 Active 1 tablet Lisinopril [facility] [address]-43 10 MG Orally Once a day Active 1 tablet Social History Social History Element Qualifiers Date Reported Tobacco Use: . Are you a: nonsmoker August 31, 2015 Caffeine: . NONE August 31, 2015 Do you drink? . NONE August 31, 2015 Vital Signs Date/Time: August 31, 2015 Weight 222 lbs Height 69 in Cardiac Monitoring Heart Rate 68 /min Blood Pressure Diastolic 76 mm Hg Blood Pressure Systolic 112 mm Hg Summary Purpose eClinicalWorks Submission
--- OUTSIDE RECORDS SUMMARY | 2019-09-10 18:10 | XMS REPORT ---
Author Author Ted Zheng Organization [employer] Address Unknown Phone Unavailable Care Team Providers Care Incoming Inspector Name Role Phone Osmar Zheng CP Unavailable [...] Start Date End Date Status Dosage Acetaminophen-Codeine #[address] [facility] 03107027486 300-30 MG Orally every 6 hrs Jan 06, 2019 Jan 11, 2019 Active 1 tablet as needed Results No Known Results Summary Purpose eClinicalWorks Submission
--- OUTSIDE RECORDS SUMMARY | 2019-09-10 18:10 | XMS REPORT ---
Author Author Ted Zheng Organization [employer] Address Unknown Phone Unavailable Care Team Providers Care Proof Carrier Name Role Phone Osmar Zheng CP Unavailable [...] Active Problem Neck swelling R22.1 Active Assessment Elevated LFTs R94.5 Active Assessment Type 2 diabetes mellitus without complications E11.9 Active Assessment Insomnia G47.00 Active Assessment Hypertension I10 Active Assessment CKD (chronic kidney disease) N18.9 Active Problem Type 2 diabetes mellitus without complications E11.9 Active Medications Medication Code System Code Instructions Start Date End Date Status Dosage GlipiZIDE ER [facility] 96113475262 2.5 Active TAKE 1 TABLET BY MOUTH DAILY Mobic [facility] 93672942835 15 MG Orally Once a day Acti ve 1 tablet Aspirin ND 30566714931 81 MG Orally Once a day Acti ve 1 tablet Atorvastatin Calcium ND 55096544765 80 Active TAKE 1 TABLET BY MOUTH DAILY Lipitor ND 06621041520 80 mg Orally Once a day Acti ve 1 tablet Toprol XL ND 29370804518 25 MG Orally Once a day Oct 18, 2014 Active 1 tablet Paxil [facility] 37888756848 20 MG Orally Once a day Mar 26, 2018 Active 1 tablet at night Vital Signs Date/Time: Mar 26, 2018 BMI 32.19 Index Weight 218 lbs Height 69 in Cardiac Monitoring Heart Rate 72 /min Blood Pressure Diastolic 68 mm Hg Blood Pressure Systolic 110 mm Hg Results No Known Results Summary Purpose eClinicalWorks Submission
--- OUTSIDE RECORDS SUMMARY | 2019-09-10 18:10 | XMS REPORT ---
Author Author Ted Zheng Organization [employer] Address Unknown Phone Unavailable Care Team Providers Care Dental Nurse Name Role Phone Osmar Zheng CP Unavailable Encounters Encounter Location Date biopsy /u [facility] Oct Unknown [facility] Oct 3 months f/u [facility] Jan 30, 2015 NEURODIAGNOSTIC TECH F/U [facility] April [id number] saw senior software quality analyst, and urologist [facility] ates Sep 14, 2014 Unknown [facility] June 20, 2015 results [facility] Oct 05, 2014 needs an order [facility] Oct 07, 2014 Unknown [facility] June 20, 2015 MD Consult [facility] May [address] [place] [address] May 122015 Problems Problem Type Condition ICD-9 Code Onset Dates Condition Statu s Problem Type 2 diabetes mellitus without complications E11.9 Active Problem Elevated lipids E78.5 Active Medications Medication Code System Code Instructions Start Date End Date Status Dosage [facility] [address]-57 2.5 MG Orally Once a day Active 1 tablet [facility] [address]-03 80 MG Orally Once a day A ctive 1 tablet Social History Social History Element Qualifiers Date Reported Tobacco Use: . Are you a: nonsmoker June 01, 2015 Caffeine: . NONE June 01, 2015 Do you drink? . NONE June 01, 2015 Summary Purpose eClinicalWorks Submission
--- OUTSIDE RECORDS SUMMARY | 2019-09-10 18:11 | XMS REPORT ---
Author Author Ted Zheng [facility] eClinicalWorks Address Unknown Phone Unavailable Care Team Providers Care Computer Technologist Name Role Phone Osmar Zheng CP Unavailable Allergies, Adverse Reactions, Alerts Substance Reaction Event Type N.K.D.A. Info Not Available Non Drug Allergy Encounters Encounter Location Date biopsy /u [facility] Oct Unknown [facility] Oct 3 months f/u [facility] Jan 30, 2015 MUSICIAN INSTRUMENTAL F/U [facility] April [id number] saw ointment mill tender, and urologist [facility] Practice [facility] ates Sep 14, 2014 results [facility] Oct 05, 2014 needs an order [facility] Oct 07, 2014 Unknown [facility] June 20, 2015 MD Consult [facility] Practice [facility] May [address] [place] [address] Practice [facility] May 122015 2wk [facility] Sep 19, 2015 3mo [facility] Dec 20, 2015 Unknown [facility] June 20, [address] [place] [address] August Problems Problem Type Condition ICD-9 Code Onset Dates Condition Statu s Problem Elevated lipids E78.5 Active Problem Type 2 diabetes mellitus without complications E11.9 Active Problem Hypertension I10 Active Assessment Elevated lipids E78.5 Active Assessment Type 2 diabetes mellitus without complications E11.9 Active Assessment Hypertension I10 Active Medications Medication Code System Code Instructions Start Date End Date Status Dosage Cyclobenzaprine HCl [facility] [address]-46 5 MG Orally once at night prn Dec 20, 2015 Dec 14, 2016 Active 1 [facility] [address]-62 81 MG Orally Once a day A ctive 1 tablet [facility]rol [facility] [address]-16 25 MG Orally Once a day Oct 18, 2014 Active 1 tablet Lisinopril [facility] [address]-78 10 MG Orally Once a day Active 1 tablet Lipitor [facility] [address]-90 80 MG Orally Once a day A ctive 1 tablet Glucotrol XL [facility] [address]-09 2.5 MG Orally Once a day Active 1 tablet Social History Social History Element Qualifiers Date Reported Tobacco Use: . Are you a: nonsmoker Dec 20, 2015 Caffeine: . NONE Dec 20, 2015 Do you drink? . NONE Dec 20, 2015 Vital Signs Date/Time: Dec 20, 2015 Weight 224 lbs Height 69 in Cardiac Monitoring Heart Rate 76 /min Blood Pressure Diastolic 74 mm Hg Blood Pressure Systolic 110 mm Hg Immunizations Vaccine Administration Date Influenza Dec 20, 2015 Summary Purpose eClinicalWorks Submission
--- OUTSIDE RECORDS SUMMARY | 2019-09-10 18:11 | XMS REPORT ---
Author Author Ted Zheng [facility] eClinicalWorks Address Unknown Phone Unavailable Care Team Providers Care Planning Advisor Name Role Phone Osmar Zheng CP Unavailable Allergies, Adverse Reactions, Alerts Substance Reaction Event Type N.K.D.A. 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 [facility] April [id number] saw sales demonstrator, and urologist [facility] ates Sep 14, 2014 results [facility] Oct 05, 2014 needs an order [facility] Oct 07, 2014 Unknown [facility] June 20, 2015 MD Consult [facility] May [address] [place] [address] May 122015 2wk [facility] Sep 19, 2015 Unknown [facility] June 20, [address] [place] [address] August Problems Problem Type Condition ICD-9 Code Onset Dates Condition Statu s Problem Type 2 diabetes mellitus without complications E11.9 Active Assessment DM (diabetes mellitus) E11.9 Activ e Problem Elevated lipids E78.5 Active Assessment Renal insufficiency N28.9 Active Assessment Hypertension I10 Active Assessment Low back pain M54.5 Active Medications Medication Code System Code Instructions Start Date End Date Status Dosage [facility] [address]-42 81 MG Orally Once a day A ctive 1 tablet Lipitor [facility] [address]-39 80 MG Orally Once a day A ctive 1 tablet Flexeril [facility] [address]-14 5 MG Orally one at night Sep 19, 2015 Nov 18, 2015 Active 1 tablet Toprol XL [facility] [address]-79 25 MG Orally Once a day Oct 18, 2014 Active 1 tablet Lisinopril [facility] [address]-55 10 MG Orally Once a day Active 1 tablet Glucotrol XL [facility] [address]-02 2.5 MG Orally Once a day Active 1 tablet Social History Social History Element Qualifiers Date Reported Tobacco Use: . Are you a: nonsmoker Sep 19, 2015 Caffeine: . NONE Sep 19, 2015 Do you drink? . NONE Sep 19, 2015 Vital Signs Date/Time: Sep 19, 2015 Weight 223 lbs Height 69 in Cardiac Monitoring Heart Rate 88 /min Blood Pressure Diastolic 82 mm Hg Blood Pressure Systolic 138 mm Hg Summary Purpose eClinicalWorks Submission
--- OUTSIDE RECORDS SUMMARY | 2019-09-10 18:11 | XMS REPORT ---
Author Author Ted Zheng Organization e[employer]Works Address Unknown Phone Unavailable Care Team Providers Care Bill Cutter Name Role Phone Osmar Zheng CP Unavailable Allergies No Known Allergies Problems Problem Type Condition Code Onset Dates Condition Statu s Problem Hypertension I10 Active Problem Elevated lipids E78.5 Active Problem CKD (chronic kidney disease) N18.9 Active Problem Type 2 diabetes mellitus without complications E11.9 Active Medications Medication Code System Code Instructions Start Date End Date Status Dosage Glucotrol XL [facility] [address]-36 2.5 MG Orally Once a day Active 1 tablet Results No Known Results Summary Purpose eClinicalWorks Submission
--- OUTSIDE RECORDS SUMMARY | 2019-09-10 18:11 | XMS REPORT ---
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 F/U [facility] April [id number] saw client support administrator, and urologist [facility] ates Sep 14, 2014 results [facility] Oct 05, 2014 needs an order [facility] Oct 07, 2014 Unknown [facility] June 20, 2015 MD Consult [facility] May 3m [facility] May 122015 Refill [facility] Apr 09, 2016 2wk [facility] Sep 19, 2015 3mo [facility] Dec 20, 2015 Unknown [facility] June 20, 2015 3m [facility] August Problems Problem Type Condition ICD-9 Code Onset Dates Condition Statu s Problem Hypertension I10 Active Problem Elevated lipids E78.5 Active Problem CKD (chronic kidney disease) N18.9 Active Problem Type 2 diabetes mellitus without complications E11.9 Active Medications Medication Code System Code Instructions Start Date End Date Status Dosage Lipitor [facility] [address]-82 80 MG Orally Once a day A ctive 1 tablet Social History Social History Element Qualifiers Date Reported Tobacco Use: . Are you a: nonsmoker Mar 25, 2016 Caffeine: . NONE Mar 25, 2016 Do you drink? . NONE Mar 25, 2016 Summary Purpose eClinicalWorks Submission
== END 2019-09-08 18:48 | DRG 244 ==
LOC: MED/SURG 11:22 → OBSVTOIN 09-06 10:12
PROVIDERS: ADMIT Internal Medicine; ATTEND Internal Medicine
PROC: 0JH606Z Insertion of Pacemaker, Dual Chamber into Chest Subcutaneous Tissue and Fascia, Open Approach (ICD-10-PCS; principal; 2019-09-06)
PROC: 02HK3JZ Insertion of Pacemaker Lead into Right Ventricle, Percutaneous Approach (ICD-10-PCS; 2019-09-06)
PROC: 02H63JZ Insertion of Pacemaker Lead into Right Atrium, Percutaneous Approach (ICD-10-PCS; 2019-09-06)
DX: I49.5 Sick sinus syndrome (principal); E04.0 Nontoxic diffuse goiter; M17.11 Unilateral primary osteoarthritis, right knee; I48.91 Unspecified atrial fibrillation; Z91.81 History of falling; I10 Essential (primary) hypertension; Z83.3 Family history of diabetes mellitus; Z82.49 Family history of ischemic heart disease and other diseases of the circulatory system; F45.8 Other somatoform disorders; E11.8 Type 2 diabetes mellitus with unspecified complications; Z11.59 Encounter for screening for other viral diseases; Z79.82 Long term (current) use of aspirin; Z79.84 Long term (current) use of oral hypoglycemic drugs
CPT/HCPCS: 33208; 36415; 70450; 70498; 71045; 76536; 80048; 80061; 82948; 83036; 84439; 84443; 84484; 85025; 86376; 93005; 93306; 93880; 97139; 99152; 99153; C1785; C1898; G0378; J0690; J2001; J2250; J2270; J3010; J3370; J7030; J7040; J7050; Q9967; U0002